=== PATIENT | male | born 1930 | race Caucasian/White ===

== ENCOUNTER → 2016-08-24 | Outpatient (CLI) | payer BC ==
[~2016-08-24] MED LIST: ACET-1138 PO; ASPEC325 PO; ASPI81TA28 PO; ATOR-22 PO; CALC500C70 PO; EZET10TA47 PO; HYDR0.5T PO; LEVO100T PO; MISCTAB88 PO; MULT-506 PO; PANT40TA PO; PRD5 PO; PRED-301 PO; ULT50X PO
--- NOTE | 2016-08-24 11:40 | DIAGNOSTIC IMAGING REPORT ---
CERVICAL SPINE 7 VIEWS HISTORY: M06.9 Rheumatoid arthritis Patient has rheumatoid arthritis he is COMPARISON: None. FINDINGS: The cervical spine is visualized from C1 through the superior endplate of T1. There is no fracture. Moderate levoscoliosis. Moderate calcification of the carotid vasculature. Moderate degenerative changes C1-C2 complex. Mild degenerative intervertebral disc change. Vertebral soft tissues are unremarkable. IMPRESSION: Moderate degenerative change. Moderate levoscoliosis. Calcification of the carotid vasculature. Electronically signed by: Boris Gilmore M.D. 08/24/2016 11:39 AM Dictated Date/Time: 08/24/2016 11:38 AM
== END | disposition home or self-care (01) ==
LOC: C.RAD1850 10:15
PROVIDERS: ATTEND Internal Medicine Rheumatology
DX: M06.9 Rheumatoid arthritis, unspecified (principal); M47.812 Spondylosis without myelopathy or radiculopathy, cervical region; M41.82 Other forms of scoliosis, cervical region; I65.29 Occlusion and stenosis of unspecified carotid artery

== ENCOUNTER → 2016-10-04 | Outpatient (CLI) | payer BC ==
[2016-10-04 12:57] LABS: ALB/GLOB RATIO 0.9 (0.9-2); ALKALINE PHOSPHATASE 79 U/L (45-117); ALT/SGPT 23 U/L (12-78); AST/SGOT 17 U/L (15-37); BLOOD UREA NITROGEN 18 mg/dl (7-18); BUN/CREATININE RATIO 19.6 (10-20); CALCIUM 8.5 mg/dl (8.5-10.1); CARBON DIOXIDE 26 mmol/L (21-32); CHLORIDE 109 mmol/L (98-107); CREATININE 0.94 mg/dl (0.60-1.40); GLUCOSE 83 mg/dl (70-99); POTASSIUM 3.6 mmol/L (3.5-5.1); SODIUM 144 mmol/L (136-145)
[2016-10-04 13:02] LABS: CHOLESTEROL 154 mg/dl (0-200); HDL CHOLESTEROL 78 mg/dl; LDL CHOLESTEROL CALCULATED 55 mg/dl; THYROID STIMULATING HORMONE 0.758 uIu/ml (0.300-4.500); TRIGLYCERIDES 105 mg/dl (0-150); VERY LOW DENSITY LIPOPROT CALC 21 mg/dl
== END | disposition home or self-care (01) ==
LOC: C.LAB 09:46
PROVIDERS: ATTEND Internal Medicine
DX: E03.9 Hypothyroidism, unspecified (principal); E78.5 Hyperlipidemia, unspecified

== ENCOUNTER 2016-11-04 09:47 | Inpatient (IN) | payer BC, OTHER ==
[2016-10-04 10:24] VITALS: BMI 26.0
--- NOTE | 2016-10-04 11:04 | PAT Medication Instructions ---
Service Date Oct 04, 2016. Current Home Medication List Aspirin (Aspirin Ec), 81 MG PO QAM Atorvastatin (Lipitor), 20 MG PO HS Calcium/Vitamin D (Os-Jimmy 500 Plus D), 1 TAB PO BID Hydroxychloroquine Sulfate (Plaquenil), 200 MG PO QAM Levothyroxine Sodium (Synthroid), 100 MCG PO HS Misc Natural Products (Osteo Bi-Flex Triple Stre), 2 TAB PO BID Multivitamin (Multivitamin), 1 TAB PO QAM Pantoprazole (Protonix), 40 MG PO QAM Prednisone (Prednisone), 5 MG PO QAM Medication Instructions For Your Scheduled Surgery Hydroxychloroquine Sulfate (Plaquenil), 200 MG PO QAM (check with forklift truck mechanic for instructions) - Hold the following medications 10 days prior to surgery: Misc Natural Products (Osteo Bi-Flex Triple Stre), 2 TAB PO BID - Hold the following medications the morning of surgery: Multivitamin (Multivitamin), 1 TAB PO QAM Calcium/Vitamin D (Os-Jimmy 500 Plus D), 1 TAB PO BID - Take the following medications the morning of surgery with a sip of water: Pantoprazole (Protonix), 40 MG PO QAM Prednisone (Prednisone), 5 MG PO QAM Aspirin (Aspirin Ec), 81 MG PO QAM - Take the following medications as scheduled the night before surgery: Levothyroxine Sodium (Synthroid), 100 MCG PO HS Calcium/Vitamin D (Os-Jimmy 500 Plus D), 1 TAB PO BID Atorvastatin (Lipitor), 20 MG PO HS If you have any questions please call us at [phone] or [phone] ( [place]) or [phone]
--- NOTE | 2016-10-04 11:46 | DIAGNOSTIC IMAGING REPORT ---
TWO VIEW CHEST CLINICAL HISTORY: Preoperative examination. FINDINGS: PA and lateral chest radiographs are compared to study dated 10/29/2013. The heart is mildly enlarged and there is atherosclerotic calcification of the thoracic aorta. The pulmonary vasculature is noncongested. Chronic interstitial thickening is unchanged. There is left basilar atelectasis. No airspace consolidation, large pleural effusion, or pneumothorax is identified. The skeletal structures are osteopenic. The bony thorax appears intact. IMPRESSION: Mild cardiac enlargement and chronic changes as above. There is no acute cardiopulmonary abnormality. Electronically signed by: Phillip Dobbins M.D. 10/04/2016 11:45 AM Dictated Date/Time: 10/04/2016 11:42 AM
[2016-10-04 12:13] LABS: BASO % 0.6 %; BASO ABS # 0.06 K/uL (0-0.2); COMPLETE YES; EOS % 2.5 %; IG% 0.3 %; LYMPH % 19.4 %; LYMPH ABS # 1.93 K/uL (1.2-3.4); MEAN CELL VOLUME 92.1 fL (80-100); MEAN CORPUSCULAR HEMOGLOBIN 29.9 pg (25-34); MEAN CORPUSCULAR HGB CONC 32.5 g/dl (32-36); MEAN PLATELET VOLUME 10.9 fL (7.4-10.4); MONO % 8.6 %; NEUT % 68.6 %; PLATELET COUNT 243 K/uL (130-400); RED BLOOD COUNT 4.78 M/uL (4.7-6.1); WHITE BLOOD COUNT 9.96 K/uL (4.8-10.8)
--- NOTE | 2016-10-04 12:16 | DIAGNOSTIC IMAGING REPORT ---
CERVICAL SPINE 3 VIEWS CLINICAL HISTORY: Chronic neck pain. Preoperative examination. FINDINGS: Lateral views of the cervical spine in the neutral, flexion, and extension positions are compared to study dated 08/24/2016. The skeletal structures are osteopenic. There is no radiographic evidence of fracture on these lateral views. Vertebral body height is maintained throughout the cervical spine. There is minimal anterolisthesis at C5-C6. This persists on the flexion and extension views. Minimal anterolisthesis is seen at C4-C5 only on the flexion views. The atlantodental articulation appears preserved noting productive degenerative change. The spinolaminar line is intact. Facet arthropathy is noted at several levels. There is only mild degenerative disc space narrowing at C5-C6 and C6-C7. The prevertebral soft tissues are within normal limits. IMPRESSION: 1. No acute bony abnormality is identified. 2. Minimal anterolisthesis at C5-C6 is unchanged on the neutral/flexion/extension views. 3. Minimal anterolisthesis at C4-C5 is only apparent on the flexion views. 4. Osteopenia and additional spondylotic changes as above. Dictated: 10/04/2016 11:45 AM Transcribed: 10/04/2016 12:15 PM [email or web address] Electronically signed by: Phillip Dobbins M.D. 10/04/2016 1:09 PM Dictated Date/Time: 10/04/2016 11:45 AM
[2016-10-04 12:19] LABS: PROTHROMBIN TIME (PATIENT) 10.7 SECONDS (9.0-12.0)
--- NOTE | 2016-10-28 21:49 | HISTORY & PHYSICAL EXAMINATION ---
DATE OF ADMISSION: 11/04/2016 CHIEF COMPLAINT: Right knee pain. HISTORY OF PRESENT ILLNESS: The patient is an 86-year-old fairly active gentleman, who has had a long history of bilateral knee pain and discomfort, right side greater than left. He has been treated conservatively with injections which helped him for about 2 weeks and that is it. Both knees hurt, but the right side is quite a bit worse than the left. It is limiting his activities. The more he walks, the more it hurts. He limps all day long. He has got intermittent swelling as well. He would like to have his right knee fixed while he is still pretty healthy. PAST MEDICAL HISTORY: 1. Elevated cholesterol. 2. Hypothyroidism. 3. Gastroesophageal reflux disease. 4. Rheumatoid arthritis, managed by Dr. Loredo PAST SURGICAL HISTORY: Include appendectomy. ALLERGIES: None. CURRENT MEDICINES: 1. Aspirin 81 mg a day. 2. Atorvastatin 20 mg daily. 3. Calcium with D. 4. Hydroxychloroquine 200 mg daily. 5. Levothyroxine 100 mcg daily. 6. Multivitamin. 7. Osteo Bi-Flex. 8. Pantoprazole 40 mg a day. 9. Prednisone for his RA. SOCIAL HISTORY: This is an 86-year-old male. He is . He is quite active and healthy. He does not smoke. FAMILY HISTORY: Noncontributory. REVIEW OF SYSTEMS: Negative for diabetes, neurologic problems, vascular problems or bleeding disorders. He does have this diagnosis of rheumatoid arthritis; low dose prednisone only. No chest pain or shortness of breath. No DVT or PE. PHYSICAL EXAMINATION: GENERAL: Reveals a healthy, pleasant elderly male. He looks younger than his stated age. HEENT: Benign. NECK: Supple. No lymphadenopathy. LUNGS: Clear to auscultation. HEART: Regular rate and rhythm. ABDOMEN: Soft, nontender and nondistended. EXTREMITIES: Grossly neurovascularly intact except as follows: Examination of the right knee and leg reveals a patient who walks with varus alignment to his knee. He has got a varus thrust. Range of motion is about 5 degrees short of full extension to 120 degrees of flexion. No instability. No pain with hip motion. X-RAYS: X-rays of the right knee were reviewed. It shows advanced bilateral knee DJD, right side is a bit worse than left. He has complete loss of his medial joint space bilaterally. Osteophytes off the medial femoral condyle and medial tibial plateau. ASSESSMENT: An 86-year-old male with advanced bilateral knee degenerative joint disease, right side more symptomatic than the left. It is limiting his activities. He would like to have his right knee replaced. PLAN: We will take him to the operating room and do a right total knee replacement. The risks and benefits of this procedure were explained to the patient including but not limited to DVT, PE, , infection, neurological injury, vascular injury, bleeding problems, pain, limited range of motion, stiffness, failure to relieve symptoms, incomplete relief of symptoms, need for further surgery in the future, fracture, leg length inequality, nerve palsy, etc. The patient understands and desires to proceed. Informed consent was obtained. He is planning to be discharged to home using [facility] home health program. I will likely give him some stress-dose steroids preoperatively due to his chronic steroid use. KINGA
[2016-11-04] VITALS (8 sets, daily range): BP systolic 108–168; BP diastolic 60–88; PULSE 53–65; TEMP 36.3–36.8; O2SAT 94–97; Ht 167.6 cm; Wt 74.7 kg
[~2016-11-04] VITALS: Ht 167.6 cm; Wt 74.7 kg
[~2016-11-04 09:47] MED LIST changes: -ACET-1138 PO; +ACETAMINOPHEN 500 MG TAB PO SCH; -ASPEC325 PO; +BUPIVACAINE 0.25% 30 ML VIAL ONE; +BUPIVACAINE 0.5 % 5 MG/1 ML PF 10ML VIAL ONE; +BUPIVACAINE LIPOSOME 266 MG, BUPIVACAINE/EPINEPHRINE INJ 50 ML, SODIUM CHLORIDE 0.9% PF... INFIL SCH; +CEFAZOLIN 2000 MG/60 ML D5W 60 ML IV SCH; -EZET10TA47 PO; +FAMOTIDINE 20 MG TAB PO SCH; +GABAPENTIN 300 MG CAP PO SCH; +LACTATED RINGER'S 1000ML IV SCH; +LACTATED RINGER'S 500 ML IV SCH; +METOCLOPRAMIDE HCL 10 MG TAB PO SCH; +MIDAZOLAM HCL 1 MG/ML 2ML VIAL ONE; -PRD5 PO; +SCOPOLAMINE 1.5 MG TDSY TD SCH; +TRANEXAMIC ACID INJ 1,000 MG in SODIUM CHLORIDE 0.9% 100ML 100 ML IV SCH; -ULT50X PO
--- NOTE | 2016-11-04 10:18 | History & Physical Bridge Note ---
H&P Re-Evaluation Bridge Note: I have examined the patient, reviewed the History & Physical and in the interval since the performance of the History & Physical I have noted the following changes of clinical significance: No changes noted
[2016-11-04] MEDS ORDERED: SODIUM CHLORIDE 0.9% PF 50 ML VIAL ONE (10:47)
[2016-11-04] MEDS ORDERED: BACITRACIN 50000 UNIT VIAL ONE (10:47)
[2016-11-04] MEDS ORDERED: BUPIVACAINE LIPOSOME 1/3% 266 MG/20 ML VIAL INFIL ONE (10:47)
[2016-11-04] MEDS ORDERED: BUPIVACAINE/EPINEPHRINE 0.25% 1:200,000 30 ML VIAL ONE (10:47)
[2016-11-04] MEDS ORDERED: MIDAZOLAM HCL 1 MG/ML 2ML VIAL ONE (11:05)
[2016-11-04] MEDS ORDERED: EpHEDrine SULFATE INJ 50 MG/ML AMP IV PRN (12:00)
[2016-11-04] MEDS ORDERED: ONDANSETRON INJ 2 MG/ML 2 ML VIAL IV PRN ×2 (12:00→14:00)
[2016-11-04] MEDS ORDERED: HYDROmorphone INJ 2 MG/ML SYR/VIAL IV PRN (12:00)
[2016-11-04] MEDS ORDERED: KETOROLAC TROMETHAMINE 30 MG/ML VIAL IV. PRN (12:00)
[2016-11-04] MEDS ORDERED: PHENYLEPHRINE 100MCG/ML 5ML SYR IV PRN (12:00)
[2016-11-04] MEDS ORDERED: ATROPINE SULFATE 0.1 MG/ML 5ML SYR IV PRN (12:00)
[2016-11-04] MEDS ORDERED: PROPOFOL IV EMULSION 10 MG/ML 20 ML VIAL IV ONE (12:23)
--- NOTE | 2016-11-04 13:46 | [facility] Post Operative Brief Note ---
Immediate Operative Summary Operative Date Nov 04, 2016. Pre-Operative Diagnosis Advanced Right Knee Degenerative Joint Disease Post-Operative Diagnosis Advanced Right Knee Degenerative Joint Disease Procedure(s) Performed Total Right Knee Arthroplasty Surgeon Dr.James West Stand Up Forklift Operator Surgeon(s) Javier Pratt Estimated Blood Loss 50 ml Findings Right Knee DJD Fluids (cc crystalloids) 1300 cc Specimens A:Right Knee Bone and Tissue Drains None Anesthesia SPinal Complication(s) None Disposition Recovery Room / PACU
[2016-11-04] MEDS ORDERED: SILVER SULFADIAZINE 1% CR 50 GM JAR EXT PRN (14:00)
[2016-11-04] MEDS ORDERED: MAGNESIUM HYDROXIDE SUSP 30 ML UDC PO PRN (14:00)
[2016-11-04] MEDS ORDERED: TAMSULOSIN HCL 0.4 MG CAP PO PRN (14:00)
[2016-11-04] MEDS ORDERED: BISACODYL 10 MG SUPP PR PRN (14:00)
[2016-11-04] MEDS ORDERED: ZOLPIDEM TARTRATE 5 MG TAB PO PRN (14:00)
[2016-11-04] MEDS ORDERED: METOCLOPRAMIDE HCL INJ 5 MG/ML 2 ML VIAL IV PRN (14:00)
[2016-11-04] MEDS ORDERED: HYDROmorphone INJ 0.5 MG/0.5 ML SYR IV PRN (14:00)
[2016-11-04] MEDS ORDERED: ALUMINUM/MAGNESIUM/SIMETH (MAALOX MAX) 30 ML UDC PO PRN (14:00)
--- NOTE | 2016-11-04 14:17 | DIAGNOSTIC IMAGING REPORT ---
RIGHT KNEE 1 OR 2 VIEWS ROUTINE CLINICAL HISTORY: Postop examination COMPARISON: Outside study dated 08/15/2016 DISCUSSION: There are postsurgical changes of a total right knee arthroplasty and patellar resurfacing. The femoral and tibial components appear well seated. Overlying skin gabriel are visualized. There is air within the soft tissues consistent with recent surgery. IMPRESSION: Postsurgical changes of a total right knee arthroplasty Electronically signed by: Aamir Haque M.D. 11/04/2016 2:15 PM Dictated Date/Time: 11/04/2016 2:14 PM
--- NOTE | 2016-11-04 14:26 | OPERATIVE REPORT ---
DATE OF OPERATION: 11/04/2016 SURGEON: Santy West MD GROUND PRODUCTS DIRECTOR: BLAYNE Shelton PREOPERATIVE DIAGNOSIS: Right knee degenerative joint disease. POSTOPERATIVE DIAGNOSIS: Same. PROCEDURE PERFORMED: Right cemented posterior stabilized total knee arthroplasty. COMPLICATIONS: None. ESTIMATED BLOOD LOSS: 50 mL. FLUID REPLACEMENT: 1300 mL crystalloid fluid replacement. TOURNIQUET TIME: 54 minutes at 300 mmHg. ANESTHESIA: Spinal with adductor canal block. DRAINS: None. SPECIMENS: Right knee sent for pathology. OPERATIVE INDICATIONS: The patient is an 86-year-old fairly active gentleman who has had a long history of bilateral knee discomfort and pain, right side greater than left. He has been treated conservatively, which did provide some relief, but only temporary for about 2 weeks. Pain has become more debilitating. The more he walks, it more hurts. He elected to proceed with total knee arthroplasty on the right. The patient does have a history of rheumatoid disease managed by Dr. Loredo in the past. OPERATIVE FINDINGS: Operative findings revealed advanced right knee DJD. He had extensive grade 4 changes of the medial femoral condyle, medial tibial plateau, and patellofemoral joint. He had a varus deformity to his knee. Moderate size joint effusion. OPERATIVE IMPLANTS: Operative implants consisted of: 1. Biomet Vanguard size 65 right posterior stabilized femoral component. 2. Biomet size 71 tibial tray. 3. A 14-mm posterior stabilized polyethylene insert. 4. A 31 x 8 all poly patella. OPERATIVE PROCEDURE: The patient was taken to the operating room, identified and placed on operative table in the supine position. All contact areas were appropriately padded. IV antibiotics were provided by the anesthesia team. A spinal anesthetic had been implemented in the holding area. An adductor canal block had also been provided in the holding area. A Marshall catheter was placed in sterile fashion. A right thigh tourniquet was then placed and the right lower extremity was then prepped and draped in the usual sterile fashion. The right leg was elevated and exsanguinated with Esmarch and tourniquet was placed at 300 mmHg. An anterior approach to the right knee was then performed through a longitudinal incision centered over the patella. Sharp dissection was carried out through the subcutaneous tissues down to the level of the extensor mechanism. A medial parapatellar arthrotomy incision was made. Some subperiosteal dissection was carried out medially. The fat pad was resected from beneath the patellar tendon. The lateral patellofemoral ligament was released. The patella was everted and knee was flexed. The osteophytes were taken off the distal femur. The ACL and PCL were then released from the distal femur and the tibia subluxated anteriorly. The external tibial alignment jig was then placed in the anterior face of the tibia and adjusted 16 mm medially. Proximal tibial cut was made to remove about a millimeter or 2 of bone from the most deficient aspect of the medial tibial plateau. Tibia was sized to a size 71. Attention was then drawn to the femur. The distal femur was entered with a sharp drill bit. Intramedullary canal was suctioned. A right 6-degree valgus cutting guide was placed. Distal femoral cutting block was pinned in place. Distal femoral cut was made to take an additional 3 mm of bone off the distal femur. The femur was then sized to a size 65. We did downsize this slightly. The AP cutting block was pinned parallel to the epicondylar axis, which was 3 degrees of external rotation. The anterior cut, anterior chamfer, posterior cut, and posterior chamfer cuts were made. Box cutting guide was placed and adjusted slightly lateral and the box cut was made. The knee was flexed. The remnants of the medial and lateral meniscus were excised. The osteophytes were taken off the posterior aspect of the femur. Trial femoral component was placed. The tibial tray was pinned in maximum external rotation and drill and stem punch were used to create defect in proximal tibia for the tibial tray. The knee was then trialed and a 14-mm insert fit most appropriately. Attention was then drawn to the patella. The patella was cleaned of all soft tissues. Patellar thickness measured 21 mm and was cut down to 13. It was sized to a size 31 patella. Lug holes were drilled for the 31 patella. The lateral osteophyte was removed. Patella button was placed. Knee was taken through range of motion and then, the patella tracked nicely with no thumbs test. Attention was then drawn toward placement of the permanent components. All trial components were removed. A bone plug was placed in the distal femur to limit blood loss. A double batch of Palacos G cement was mixed. A right size 65 posterior stabilized femoral component, size 71 tibial tray, 14 mm posterior stabilized polyethylene insert, and a 31 x 8 all poly patella then cemented in place. Knee was brought out into full extension until cement hardened. A final cement check was then performed. Pericapsular tissues were injected with a total of 100 mL of a combination of 20 mL of Exparel, 30 mL of normal saline, and 50 mL of 0.25% Marcaine with epinephrine. The patient did receive 1 gram of tranexamic acid, but the tourniquet was then let down for final tourniquet time of 54 minutes. Hemostasis was assured with the use of electrocautery. The extensor mechanism was then closed with a combination of #1 PDS suture and #1 Vicryl suture in a [id number] fashion. Extensor mechanism was checked and found to be intact. The subcutaneous tissues were then closed with 2-0 Dexon suture in a buried interrupted fashion. Skin was closed skin gabriel. Leg was then cleaned and dried and a sterile dressing of Xeroform, 4 x 4, sterile cast padding and Miguel bandage were applied. The patient then transferred to the recovery room in stable condition. The patient tolerated the procedure well with no complications. All needle and sponge counts were correct at the end of the operation. I attest to the content of the Intraoperative Record and any orders documented therein. Any exceptions are noted below. [place]
--- NOTE | 2016-11-04 14:46 | Anesthesiology Progress Note ---
Anesthesia Post Op Note Date & Time Nov 04, 2016 at 14:43 Vital Signs Pain Intensity: 0 Vital Signs Past 12 Hours Date Time Temp Pulse Resp B/P Pulse Ox O2 Delivery O2 Flow Rate FiO2 11/04/16 14:20 130/65 11/04/16 14:17 49 17 99 11/04/16 14:17 50 17 11/04/16 14:15 121/73 11/04/16 14:12 53 18 97 11/04/16 14:12 54 18 11/04/16 14:11 127/65 11/04/16 14:07 50 17 98 11/04/16 14:07 50 17 11/04/16 14:06 51 15 99 11/04/16 14:06 50 15 11/04/16 14:05 36.1 11/04/16 14:05 129/64 11/04/16 14:01 51 17 11/04/16 14:01 50 17 98 11/04/16 14:00 132/70 11/04/16 13:56 51 18 98 11/04/16 13:56 50 18 11/04/16 13:55 107/59 11/04/16 13:51 56 16 98 11/04/16 13:51 55 16 11/04/16 13:50 118/61 11/04/16 13:46 54 13 108/67 95 11/04/16 13:46 35.4 55 19 108/67 96 Nasal Cannula 2 11/04/16 13:46 54 13 11/04/16 10:05 65 18 168/65 97 Room Air Notes Mental Status: alert / awake / arousable, participated in evaluation Pt Amnestic to Procedure: Yes Nausea / Vomiting: adequately controlled Pain: adequately controlled Airway Patency, RR, SpO2: stable & adequate BP & HR: stable & adequate Hydration State: stable & adequate Anesthetic Complications: no major complications apparent Patient skin temp 36.4 but trying to take an oral temperature showed temp of 35.4. I felt patient and he is warm to the touch, denied shivering and said he doesn't feel cold. Diane hugger in place with warm blankets. Plan will be to transfer patient and have diane hugger available on floor until spinal wears completely off and he should have no problems being normothermic. Patient has no questions about his anesthetic care and he is appropriate for transfer.
[2016-11-04] MEDS: CHECK SCOPOLAMINE PATCH PLACEMENT SCH ×2 (16:00→23:42)
[2016-11-04] MEDS: HYDROCORTISONE IV 100 MG in SYRINGE 0 ML IV SCH ×2 (17:11→23:34)
[2016-11-04] MEDS: D5W AND 1/2NSS + 20MEQ KCL 1,000 ML IV SCH (17:11)
[2016-11-04] MEDS: ACETAMINOPHEN 500 MG TAB PO SCH ×2 (17:11→23:34)
[2016-11-04] MEDS: FERROUS GLUCONATE 324 MG TAB PO SCH (17:19)
[2016-11-04] MEDS: KETOROLAC TROMETHAMINE 15 MG/ML VIAL IV. SCH ×2 (17:24→23:34)
[2016-11-04] MEDS ORDERED: TRANEXAMIC ACID INJ 1,000 MG in SODIUM CHLORIDE 0.9% 100ML 100 ML IV SCH (18:00)
--- NOTE | 2016-11-04 18:07 | Medical Consult ---
Consultation Date of Consultation: Nov 04, 2016. Attending Physician: Santy West M.D. Reason for Consultation: Medical management History of Present Illness 86 yo male with history of RA, osteoarthritis, and GERD, presented today for elective right TKA after failing injections and other conservative therapy. No complications, he was transferred to the floor in stable condition. Currently his knee pain is well controlled, he already completed some therapy and he is eating dinner. Had a little nausea and vomiting but that seems to have improved. No chest pain or shortness of breath after surgery. Past Medical/Surgical History PAST MEDICAL HISTORY: 1. Elevated cholesterol. 2. Hypothyroidism. 3. Gastroesophageal reflux disease. 4. Rheumatoid arthritis, managed by Dr. Loredo PAST SURGICAL HISTORY: Include appendectomy. 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 Aspirin 81 mg a day. 2. Atorvastatin 20 mg daily. 3. Calcium with D. 4. Hydroxychloroquine 200 mg daily. 5. Levothyroxine 100 mcg daily. 6. Multivitamin. 7. Osteo Bi-Flex. 8. Pantoprazole 40 mg a day. 9. Prednisone for his RA. Current Inpatient Medications Current Inpatient Medications Medications (Trade) Dose Ordered Sig/Migel Route Start Time Stop Time Status Last Admin Dose Admin Lactated Ringer's 1,000 ml @ 60 mls/hr [id number] IV 11/04/16 06:00 11/04/16 22:39 Cefazolin Sodium (Ancef 2000mg/60 ml D5W) 60 ml @ 100 mls/hr PREOP IV 11/04/16 06:00 11/04/16 18:00 11/04/16 11:59 100 MLS/HR Acetaminophen 1000 mg 1,000 mg PREOP PO 11/04/16 06:00 11/04/16 18:00 11/04/16 10:53 1,000 MG Bupivacaine Liposome/ Bupivacaine HCl/ Epinephrine Bitart/Sodium Chloride/Syringe (Exparel/ BUPIVACAINE/ EPINEPHRINE 0.25% Inj/Sodium Chloride 0.9% Pf Inj/Syringe) 100 ml @ 0 mls/hr 06 INFIL 11/04/16 06:00 11/04/16 18:00 Famotidine (Pepcid Tab) 20 mg PREOP PO 11/04/16 06:00 11/04/16 18:00 11/04/16 10:51 20 MG Gabapentin (Neurontin Cap) 300 mg PREOP PO 11/04/16 06:00 11/04/16 18:00 11/04/16 10:51 300 MG Metoclopramide HCl (Reglan Tab) 10 mg PREOP PO 11/04/16 06:00 11/04/16 18:00 11/04/16 10:52 10 MG Miscellaneous (Remove Transderm-Scop Patch) 1 ea Q72H N/A 11/07/16 06:00 11/07/16 06:01 Miscellaneous Information 1 ea 1 ea QS N/A 11/04/16 16:00 11/06/16 05:59 11/04/16 16:00 1 EA Lactated Ringer's 1,000 ml @ 15 mls/hr Q24H IV 11/04/16 06:00 11/05/16 05:59 Potassium Chloride/Dextrose/ Sod Cl 1,000 ml @ 100 mls/hr Q10H IV 11/04/16 16:00 11/05/16 13:45 11/04/16 17:11 100 MLS/HR Cefazolin Sodium/ Dextrose (Ancef Iv/D5 50ml) 55 ml @ 100 mls/hr Q8H IV 11/04/16 20:00 11/05/16 04:32 Acetaminophen (Tylenol Tab) 1,000 mg Q8H PO 11/04/16 16:00 12/04/16 13:59 11/04/16 17:11 1,000 MG Magnesium Hydroxide (Milk Of Magnesia Susp) 30 ml Q6H PRN PO 11/04/16 14:00 12/04/16 13:59 Bisacodyl (Dulcolax Supp) 10 mg DAILY PRN NH 11/04/16 14:00 12/04/16 13:59 Docusate Sodium (coLACE CAP) 100 mg BID PO 11/04/16 21:00 12/04/16 20:59 Al Hydrox/Mg Hydrox/Simethicone (Maalox Max Susp) 15 ml Q4H PRN PO 11/04/16 14:00 12/04/16 13:59 Zolpidem Tartrate (Ambien Tab) 5 mg HSZ PRN PO 11/04/16 14:00 12/04/16 13:59 Multivitamins (Multivitamin Tab) 1 tab QAM PO 11/05/16 09:00 12/05/16 08:59 Ondansetron HCl (Zofran Inj) 4 mg Q6H PRN IV 11/04/16 14:00 12/04/16 13:59 Metoclopramide HCl (Reglan Inj) 10 mg Q6H PRN IV 11/04/16 14:00 12/04/16 13:59 Ferrous Gluconate (Ferrous Gluconate Tab) 324 mg TIDM PO 11/04/16 17:45 12/04/16 17:59 11/04/16 17:19 324 MG Pantoprazole Sodium (Protonix Tab) 40 mg QAM PO 11/05/16 09:00 12/05/16 08:59 Silver Sulfadiazine (Silvadene 1% Crm 50GM Jar) 1 appln BID PRN EXT 11/04/16 14:00 12/04/16 13:59 Aspirin (Ecotrin Tab) 325 mg BID PO 11/04/16 21:00 12/04/16 20:59 Tamsulosin HCl (Flomax Cap) 0.4 mg QAM PRN PO 11/04/16 14:00 12/04/16 13:59 Tramadol HCl 1 tablet for pain rating... Q4H PRN PO 11/04/16 14:00 12/04/16 13:59 Tranexamic Acid/ Sodium Chloride (Cyklokapron Inj/ Nss 100ml) 110 ml @ 660 mls/hr Q6H IV 11/04/16 18:00 11/04/16 18:09 11/04/16 17:24 660 MLS/HR Ketorolac Tromethamine (Toradol Inj) 15 mg Q6H IV. 11/04/16 18:00 11/06/16 12:01 11/04/16 17:24 15 MG Atorvastatin Calcium (Lipitor Tab) 20 mg HS PO 11/04/16 21:00 12/04/16 20:59 Calcium/Vitamin D (Caltrate Plus Tab) 1 tab BID PO 11/04/16 21:00 12/04/16 20:59 Levothyroxine Sodium (Synthroid Tab) 100 mcg HS PO 11/04/16 21:00 12/04/16 20:59 Prednisone (PredniSONE TAB) 5 mg QAM PO 11/05/16 09:00 12/05/16 08:59 Hydromorphone HCl 0.5 mg 0.5 mg Q1H PRN IV 11/04/16 14:00 11/18/16 13:59 Hydrocortisone Sodium Succinate/ Syringe (Solu-Cortef IV/ Syringe) 2 ml @ 4 mls/min Q8H IV 11/04/16 16:30 11/05/16 08:31 11/04/16 17:11 4 MLS/MIN Review of Systems Constitutional: No chills, No fatigue, No fever, No problem reported, No sweats , No weakness, No weight loss Eyes: No diplopia, No discharge, No eye pain, No problem reported, No redness, No worsening of vision ENT: No dental problems, No hearing loss, No nasal symptoms, No problem reported, No sore throat, No tinnitus, No trouble swallowing, No unusual epistaxis Respiratory: No cough, No dyspnea at rest, No dyspnea on exertion, No hemoptysis, No problem reported, No shortness of breath, No sputum, No wheezing Cardiovascular: No PND, No chest pain, No claudication, No edema, No orthopnea , No palpitations, No problem reported Abdomen: + nausea, + vomiting, No GI bleeding, No constipation, No diarrhea, No pain Musculoskeletal: + joint pain (mild in right knee), No calf pain, No muscle pain, No problem reported, No swelling Genitourinary - Male: No dysuria, No hematuria, No urinary frequency, No urinary urgency Neurologic: No balance problems, No memory loss, No numbness/tingling, No paralysis, No problem reported, No vertigo, No weakness Psychiatric: No anhedonism, No anxiety, No depression symptoms, No insomnia, No problem reported, No substance abuse Endocrine: No excessive thirst, No excessive urination, No fatigue, No problem reported Hematologic / Lymphatic: No abnormal bleeding/bruising, No clotting problems, No night sweats, No problem reported, No swollen lymph nodes Integumentary: No bleeding, No color change, No itch, No new/changing skin lesions, No problem reported, No rash Allergic / Immunologic: No environmental allergies, No food allergies, No frequent infections, No hives, No pet sensitivities, No poor healing, No problem reported, No prolonged convalescence, No seasonal allergies Physical Exam Date Time Temp Pulse Resp B/P Pulse Ox O2 Delivery O2 Flow Rate FiO2 11/04/16 17:30 36.4 63 17 155/79 97 Nasal Cannula 2.0 11/04/16 16:29 36.4 60 17 115/74 97 Nasal Cannula 2.0 11/04/16 16:03 36.3 62 18 128/80 97 Nasal Cannula 2.0 11/04/16 15:41 Nasal Cannula 2.0 98 11/04/16 15:38 96 Nasal Cannula 2.0 11/04/16 15:30 36.4 59 15 131/80 96 Nasal Cannula 2.0 11/04/16 15:08 60 17 98 11/04/16 15:08 61 17 11/04/16 15:05 130/84 11/04/16 15:04 36.4 11/04/16 15:03 60 19 98 11/04/16 15:03 59 19 11/04/16 15:00 146/67 11/04/16 14:59 36.4 11/04/16 14:58 52 19 97 11/04/16 14:58 52 19 11/04/16 14:57 52 19 97 11/04/16 14:57 52 19 11/04/16 14:55 137/69 11/04/16 14:52 55 18 11/04/16 14:52 55 18 97 11/04/16 14:50 141/70 11/04/16 14:47 55 16 99 11/04/16 14:47 55 16 11/04/16 14:45 141/69 11/04/16 14:42 51 17 11/04/16 14:42 51 17 99 11/04/16 14:41 53 19 141/68 99 11/04/16 14:41 53 19 11/04/16 14:36 54 17 99 11/04/16 14:36 53 17 11/04/16 14:35 142/67 11/04/16 14:31 52 18 11/04/16 14:31 52 18 99 11/04/16 14:30 142/67 11/04/16 14:26 52 17 99 11/04/16 14:26 51 17 11/04/16 14:25 147/70 11/04/16 14:21 49 14 99 11/04/16 14:21 49 14 11/04/16 14:20 130/65 11/04/16 14:17 49 17 99 11/04/16 14:17 50 17 11/04/16 14:15 121/73 11/04/16 14:12 53 18 97 11/04/16 14:12 54 18 11/04/16 14:11 127/65 11/04/16 14:07 50 17 98 11/04/16 14:07 50 17 11/04/16 14:06 51 15 99 11/04/16 14:06 50 15 11/04/16 14:05 36.1 11/04/16 14:05 129/64 11/04/16 14:01 51 17 11/04/16 14:01 50 17 98 11/04/16 14:00 132/70 11/04/16 13:56 51 18 98 11/04/16 13:56 50 18 11/04/16 13:55 107/59 11/04/16 13:51 56 16 98 11/04/16 13:51 55 16 11/04/16 13:50 118/61 11/04/16 13:46 54 13 108/67 95 11/04/16 13:46 35.4 55 19 108/67 96 Nasal Cannula 2 11/04/16 13:46 54 13 11/04/16 10:05 65 18 168/65 97 Room Air General Appearance: WD/WN, no apparent distress Head: normocephalic, atraumatic Eyes: normal inspection, EOMI, sclerae normal ENT: normal ENT inspection, hearing grossly normal, pharynx normal Neck: supple, no adenopathy, no JVD, trachea midline Respiratory/Chest: chest non-tender, lungs clear, normal breath sounds, no respiratory distress, no accessory muscle use Cardiovascular: regular rate, rhythm, no edema, no gallop, no JVD, no murmur, normal peripheral pulses Abdomen/GI: normal bowel sounds, non tender, soft, no organomegaly Back: normal inspection, no CVA tenderness, no muscle spasm, normal range of motion Extremities/Musculoskelatal: no calf tenderness, normal capillary refill, no pedal edema, pelvis stable, + pertinent finding (right knee tender, decreased ROM) Neurologic/Psych: senior paralegal II-XII nml as tested, no motor/sensory deficits, alert, normal mood/affect, normal reflexes, oriented x 3 Skin: normal color, warm/dry, no rash Lymphatic: no adenopathy Assessment & Plan 86 yo male with history of GERD and RA, stable after an elective R TKA today - s/p R TKA, POD #0: doing well, management per Dr. West - RA: continue Prednisone 5mg daily, his symptoms have been well controlled for years - GERD: PPI, no symptoms - Hypothyroidism: Synthroid - DVT prophylaxis: per ortho check labs in the AM, can likely sign off tomorrow if vitals and labs normal
[2016-11-04] MEDS: ATORVASTATIN 20 MG TAB PO SCH (20:43)
[2016-11-04] MEDS: CEFAZOLIN IV 1,000 MG in DEXTROSE 5% 50ML 50 ML IV SCH (20:43)
[2016-11-04] MEDS: CALCIUM 600MG + VIT D 400 IU TAB PO SCH (20:43)
[2016-11-04] MEDS: ASPIRIN 325 MG ECTAB PO SCH (20:43)
[2016-11-04] MEDS: DOCUSATE SODIUM 100 MG CAP PO SCH (20:43)
[2016-11-04] MEDS: LEVOTHYROXINE 100 MCG TAB PO SCH (20:44)
[2016-11-04] MEDS ORDERED: NATURAL PRODUCTS PO SCH (21:00)
--- NOTE | 2016-11-04 21:26 | PROGRESS NOTE ---
DATE: 11/04/2016 SUBJECTIVE: An 86-year-old gentleman postop from a right knee replacement. He was pretty groggy when I visited with him this afternoon. Awake, alert and oriented but just groggy. Not having much pain. No chest pain or shortness of breath. OBJECTIVE: VITAL SIGNS: Temperature 36.4. Vital signs stable. GENERAL: Reveals a healthy pleasant, elderly male. He is sitting up in bed and talking to his family. He seems a little bit groggy. LUNGS: Clear to auscultation. HEART: Regular rate and rhythm. ABDOMEN: Soft, nontender, nondistended. EXTREMITIES: Grossly neurovascularly intact except as follows. Examination of the right lower extremity reveals the dressing to be clean, dry and intact. Leg is well aligned. He can dorsiflex and plantarflex his foot appropriately. He is neurologically intact. X-RAYS: X-rays of the right knee from today are reviewed in the recovery room. It shows a well-positioned total knee replacement. No signs of problems. ASSESSMENT: An 86-year-old gentleman postop from a right knee replacement, doing well. Pain is controlled. Still a bit groggy from the anesthesia. PLAN: 1. DVT prophylaxis including thigh-high TEDs, SCDs, and aspirin twice a day. 2. PT/OT. Weightbearing as tolerated. Right total knee protocol. 3. Pain control, doing pretty well with current pain regimen. 4. IV antibiotics x 24 hours. 5. Medical management as per the medicine service. 6. Disposition: He is planning to be discharged home using [facility] home health program once adequately recovered.
[2016-11-05] VITALS (8 sets, daily range): BP systolic 118–152; BP diastolic 68–100; PULSE 49–105; TEMP 36.4–36.9; O2SAT 94–97
[2016-11-05] MEDS: D5W AND 1/2NSS + 20MEQ KCL 1,000 ML IV SCH ×2 (01:50→11:29)
[2016-11-05] MEDS: CEFAZOLIN IV 1,000 MG in DEXTROSE 5% 50ML 50 ML IV SCH (03:51)
[2016-11-05 05:44] LABS: HEMATOCRIT 38.3 % (42-52); MEAN CELL VOLUME 92.1 fL (80-100); MEAN CORPUSCULAR HEMOGLOBIN 29.6 pg (25-34); MEAN CORPUSCULAR HGB CONC 32.1 g/dl (32-36); MEAN PLATELET VOLUME 10.5 fL (7.4-10.4); PLATELET COUNT 207 K/uL (130-400); RED BLOOD COUNT 4.16 M/uL (4.7-6.1); WHITE BLOOD COUNT 14.04 K/uL (4.8-10.8)
[2016-11-05] MEDS: KETOROLAC TROMETHAMINE 15 MG/ML VIAL IV. SCH ×5 (05:44→23:45)
[2016-11-05 06:09] LABS: POTASSIUM 4.1 mmol/L (3.5-5.1)
[2016-11-05] MEDS: CHECK SCOPOLAMINE PATCH PLACEMENT SCH ×3 (08:26→22:43)
[2016-11-05] MEDS: FERROUS GLUCONATE 324 MG TAB PO SCH ×3 (08:31→17:45)
[2016-11-05] MEDS: ASPIRIN 325 MG ECTAB PO SCH ×2 (08:32→20:00)
[2016-11-05] MEDS: MULTIVITAMIN TAB PO SCH (08:32)
[2016-11-05] MEDS: PANTOprazole SOD 40 MG TAB PO SCH (08:32)
[2016-11-05] MEDS: DOCUSATE SODIUM 100 MG CAP PO SCH ×2 (08:32→20:00)
[2016-11-05] MEDS: CALCIUM 600MG + VIT D 400 IU TAB PO SCH ×2 (08:32→20:00)
[2016-11-05] MEDS: HYDROCORTISONE IV 100 MG in SYRINGE 0 ML IV SCH (08:33)
[2016-11-05] MEDS: ACETAMINOPHEN 500 MG TAB PO SCH ×3 (08:33→23:40)
[2016-11-05] MEDS ORDERED: ULT50X PO (08:39)
[2016-11-05] MEDS ORDERED: ASPEC325 PO (08:39)
[2016-11-05] MEDS ORDERED: ACET-1138 PO (08:39)
--- NOTE | 2016-11-05 08:41 | Discharge Instructions ---
Discharge Instructions Date of Service Nov 05, 2016. Admission Reason for Admission: Right Knee Osteoarthritis Discharge Discharge Diagnosis / Problem: Right Knee Replacement Discharge Goals Goal(s): Decrease discomfort, Improve function, Increase independence, Improve disease control, Therapeutic intervention Activity Recommendations Activity Limitations: per Instructions/Follow-up section Weightbearing Status: Right weightbearing . Instructions / Follow-Up Instructions / Follow-Up ACTIVITY RECOMMENDATIONS: Physical Therapy: * You will go to physical therapy three times each week for four to six weeks after your surgery in order to regain your knee range of motion and to retrain your knee to work properly. * It is just as important to make sure you are getting your knee perfectly straight as it is to regain your knee bend. * Taking a pain pill an hour before therapy can help you have a more productive and comfortable therapy session. Home Exercise: * You were shown a series of exercises (heel props, heel slides, etc.) in the hospital. Do these exercises three to four times each day including the exercises you were shown in physical therapy. Walking: * Get up and walk several times each day. For the first four weeks, try not to stand or walk for more than one hour at a time. If you do stand or walk for more than one hour, you will not hurt anything, but your knee and leg will likely swell. * As you feel comfortable, you may change from the walker or crutches to a cane and then to independent walking. MEDICATIONS: New Medicine: * You will likely be taking one or more of these medications: 1. Tramadol - A quick and shorter-acting pain medication. Take one to two tablets every four to six hours to lessen your pain. 2. Aspirin - Thins your blood to lessen the chance of forming a blood clot. * The most common side effects of pain medicine and iron are nausea and constipation. If nausea or constipation is too much of a problem or if you have any questions about your new medicines or doses, call [facility] at [phone]. We will try to help you manage these issues. VERY IMPORTANT TO READ AND REVIEW" Pain: * The immediate post-operative period after knee replacement surgery is often quite painful. * You are given a prescription for pain medicine. You should take it, as directed, when you need it, especially before physical therapy and before going to bed. Pain that interferes with sleep is very common and can last several months. * You will likely need pain medicine for the first four to six weeks. It will not stop all of the pain. The pain will lessen and as you feel better, you may change to milder pain medicine such as Tylenol. * The most common side effects of pain medicine are nausea and constipation, so don't take more than you need. SPECIAL CARE INSTRUCTIONS: TEDs/Elastic Stockings: * The white elastic stockings help limit swelling and prevent blood clots from forming in your legs. The more you wear them, the more they work. * Wear them for six weeks after knee replacement surgery and four weeks after partial knee replacement. Prevention of Infection: * Take antibiotics one hour before any dental cleaning, dental work, urological procedure, gastrointestinal procedure or any invasive surgery in order to prevent your new joint from getting infected. * You may get the antibiotics from the doctor performing the procedure or you may call our office at before and we will call in a prescription to the pharmacy of your choice. Things to Watch For: * Drainage from the incision site that occurs more than one week after your surgery. * Severely increased knee/leg pain or swelling. * Increased redness at the incision site. * Fever above 102 degrees Fahrenheit. * Unusual chest pain or shortness of breath. * Unusual pain or burning with urination. Call [facility] at with any of the above problems or if you have any questions about your medicines or recovery. FOLLOW UP VISIT: Make an appointment to see your doctor for approximately two weeks after surgery for a progress check and staple removal by calling the office at . Current Hospital Diet Patient's current hospital diet: Regular Diet Discharge Diet Recommended Diet: Regular Diet Procedures Procedures Performed: Total Right Knee Arthroplasty Pending Studies Studies pending at discharge: no Laboratory Results Lipid Panel Test 10/04/16 11:11 Range/Units Triglycerides Level 105 0-150 mg/dl Cholesterol Level 154 0-200 mg/dl HDL Cholesterol 78 mg/dl Cholesterol/HDL Ratio 2.0 LDL Cholesterol, Calculated 55 mg/dl Medical Emergencies . Who to Call and When: Medical Emergencies: If at any time you feel your situation is an emergency, please call 911 immediately. . Non-Emergent Contact Non-Emergency issues call your: Surgeon . "Provider Documentation" section prepared by Santy West. . VTE Core Measure Inpt VTE Proph given/why not?: Other Anticoagulation, TTerrance Luke, SCD's
--- NOTE | 2016-11-05 08:56 | PROGRESS NOTE ---
DATE: 11/05/2016 SUBJECTIVE: An 86-year-old gentleman, postop day #1 from a right knee replacement. He is doing pretty well. He is not having much pain at all. He seems to have just a slight bit of confusion, which is ____ his baseline. No chest pain or shortness of breath. Not feeling dizzy or lightheaded. OBJECTIVE: VITAL SIGNS: Temperature 36.4. Vital signs stable. GENERAL: Reveals a healthy, pleasant elderly male. He is sitting up in the bedside chair and looks pretty comfortable. EXTREMITIES: Examination of the right leg reveals the dressing to be clean, dry and intact. He can do a straight leg raise. He can dorsiflex and plantarflex his foot appropriately. He is neurologically intact. LABORATORY DATA: Hemoglobin 12.3, hematocrit 38.3. Electrolytes are stable. ASSESSMENT: This is an 86-year-old gentleman, postop day #1 from right knee replacement, doing well. His knee looks good. Not much swelling. He is functioning well. Pain is controlled. PLAN: 1. DVT prophylaxis including thigh-high TEDs, SCDs and aspirin twice a day. 2. PT/OT. Weightbearing as tolerated. Right total knee protocol. 3. Pain control, doing pretty well with current pain regimen. We are going to really try to avoid narcotics to avoid confusion as I think he is high risk for confusion and sundowning. 4. Disposition: Plan to discharge to home with some home health once adequately recoverd.
[2016-11-05] MEDS ORDERED: MULTIVITAMIN TAB PO SCH (09:00)
[2016-11-05] MEDS ORDERED: PANTOprazole SOD 40 MG TAB PO SCH (09:00)
--- NOTE | 2016-11-05 09:06 | Hospitalist Progress Note ---
Hospitalist Progress Note Date of Service Nov 05, 2016. Subjective Pt evaluation today including: conversation w/ patient Pain: well controlled patient with no complaints no chest pain no shortness of breath Medications Last Resulted CBC 11/05/16 05:25 Last Resulted BMP 11/05/16 05:25 Medications (Trade) Dose Ordered Sig/Migel Route Start Time Stop Time Status Last Admin Dose Admin Miscellaneous Information (Check Scopolamine Patch Placement) 1 ea QS N/A 11/04/16 16:00 11/06/16 05:59 11/05/16 08:26 1 EA Bupivacaine HCl/ Epinephrine Bitart (BUPIVACAINE/ EPINEPHRINE 0.25% Inj) 60 ml STK-MED ONCE .ROUTE 11/04/16 10:47 11/04/16 10:48 DC 11/04/16 13:24 50 ML Sodium Chloride (Sodium Chloride 0.9% Pf Inj) 50 ml STK-MED ONCE .ROUTE 11/04/16 10:47 11/04/16 10:48 DC 11/04/16 10:47 30 ML Bacitracin (Bacitracin Inj) 50,000 units STK-MED ONCE .ROUTE 11/04/16 10:47 11/04/16 10:48 DC 11/04/16 13:26 50,000 UNITS Bupivacaine Liposome 266 mg 266 mg STK-MED ONCE INFIL 11/04/16 10:47 11/04/16 10:48 DC 11/04/16 13:23 266 MG Potassium Chloride/Dextrose/ Sod Cl 1,000 ml @ 100 mls/hr Q10H IV 11/04/16 16:00 11/05/16 13:45 11/05/16 01:50 100 MLS/HR Cefazolin Sodium/ Dextrose (Ancef Iv/D5 50ml) 55 ml @ 100 mls/hr Q8H IV 11/04/16 20:00 11/05/16 04:32 DC 11/05/16 03:51 100 MLS/HR Acetaminophen (Tylenol Tab) 1,000 mg Q8H PO 11/04/16 16:00 12/04/16 13:59 11/05/16 08:33 1,000 MG Docusate Sodium (coLACE CAP) 100 mg BID PO 11/04/16 21:00 12/04/16 20:59 11/05/16 08:32 100 MG Multivitamins (Multivitamin Tab) 1 tab QAM PO 11/05/16 09:00 12/05/16 08:59 11/05/16 08:32 1 TAB Ferrous Gluconate (Ferrous Gluconate Tab) 324 mg TIDM PO 11/04/16 17:45 12/04/16 17:59 11/05/16 08:31 324 MG Pantoprazole Sodium (Protonix Tab) 40 mg QAM PO 11/05/16 09:00 12/05/16 08:59 11/05/16 08:32 40 MG Aspirin 325 mg 325 mg BID PO 11/04/16 21:00 12/04/16 20:59 11/05/16 08:32 325 MG Tranexamic Acid/ Sodium Chloride (Cyklokapron Inj/ Nss 100ml) 110 ml @ 660 mls/hr Q6H IV 11/04/16 18:00 11/04/16 18:09 DC 11/04/16 17:24 660 MLS/HR Ketorolac Tromethamine (Toradol Inj) 15 mg Q6H IV. 11/04/16 18:00 11/06/16 12:01 11/05/16 05:44 15 MG Atorvastatin Calcium (Lipitor Tab) 20 mg HS PO 11/04/16 21:00 12/04/16 20:59 11/04/16 20:43 20 MG Calcium/Vitamin D (Caltrate Plus Tab) 1 tab BID PO 11/04/16 21:00 12/04/16 20:59 11/05/16 08:32 1 TAB Levothyroxine Sodium (Synthroid Tab) 100 mcg HS PO 11/04/16 21:00 12/04/16 20:59 11/04/16 20:44 100 MCG Prednisone 5 mg 5 mg QAM PO 11/05/16 09:00 12/05/16 08:59 11/05/16 08:32 5 MG Hydrocortisone Sodium Succinate/ Syringe (Solu-Cortef IV/ Syringe) 2 ml @ 4 mls/min Q8H IV 11/04/16 16:30 11/05/16 08:31 DC 11/05/16 08:33 4 MLS/MIN Objective Vital Signs Date Time Temp Pulse Resp B/P Pulse Ox O2 Delivery O2 Flow Rate FiO2 11/05/16 08:21 Room Air 11/05/16 06:53 36.4 58 19 145/78 95 Room Air 11/05/16 06:23 36.9 147/100 11/05/16 04:00 52 11/05/16 03:48 36.6 49 16 118/68 97 Nasal Cannula 2.0 11/04/16 23:45 Nasal Cannula 1.0 11/04/16 22:49 36.8 53 16 108/60 94 Nasal Cannula 2.0 11/04/16 18:30 36.5 60 15 150/88 96 Nasal Cannula 1.0 11/04/16 17:30 36.4 63 17 155/79 97 Nasal Cannula 2.0 11/04/16 16:29 36.4 60 17 115/74 97 Nasal Cannula 2.0 11/04/16 16:03 36.3 62 18 128/80 97 Nasal Cannula 2.0 11/04/16 15:41 Nasal Cannula 2.0 98 11/04/16 15:38 96 Nasal Cannula 2.0 11/04/16 15:30 36.4 59 15 131/80 96 Nasal Cannula 2.0 11/04/16 15:08 60 17 98 11/04/16 15:08 61 17 11/04/16 15:05 130/84 11/04/16 15:04 36.4 11/04/16 15:03 60 19 98 11/04/16 15:03 59 19 11/04/16 15:00 146/67 11/04/16 14:59 36.4 11/04/16 14:58 52 19 97 11/04/16 14:58 52 19 11/04/16 14:57 52 19 97 11/04/16 14:57 52 19 11/04/16 14:55 137/69 11/04/16 14:52 55 18 11/04/16 14:52 55 18 97 11/04/16 14:50 141/70 11/04/16 14:47 55 16 99 11/04/16 14:47 55 16 11/04/16 14:45 141/69 11/04/16 14:42 51 17 11/04/16 14:42 51 17 99 11/04/16 14:41 53 19 141/68 99 11/04/16 14:41 53 19 11/04/16 14:36 54 17 99 11/04/16 14:36 53 17 11/04/16 14:35 142/67 11/04/16 14:31 52 18 11/04/16 14:31 52 18 99 11/04/16 14:30 142/67 11/04/16 14:26 52 17 99 11/04/16 14:26 51 17 11/04/16 14:25 147/70 11/04/16 14:21 49 14 99 11/04/16 14:21 49 14 11/04/16 14:20 130/65 11/04/16 14:17 49 17 99 11/04/16 14:17 50 17 11/04/16 14:15 121/73 11/04/16 14:12 53 18 97 11/04/16 14:12 54 18 11/04/16 14:11 127/65 11/04/16 14:07 50 17 98 11/04/16 14:07 50 17 11/04/16 14:06 51 15 99 11/04/16 14:06 50 15 11/04/16 14:05 36.1 11/04/16 14:05 129/64 11/04/16 14:01 51 17 11/04/16 14:01 50 17 98 11/04/16 14:00 132/70 11/04/16 13:56 51 18 98 11/04/16 13:56 50 18 11/04/16 13:55 107/59 11/04/16 13:51 56 16 98 11/04/16 13:51 55 16 11/04/16 13:50 118/61 11/04/16 13:46 54 13 108/67 95 11/04/16 13:46 35.4 55 19 108/67 96 Nasal Cannula 2 11/04/16 13:46 54 13 11/04/16 10:05 65 18 168/65 97 Room Air Physical Exam General Appearance: no apparent distress Eyes: normal inspection Neck: trachea midline Respiratory/Chest: lungs clear Cardiovascular: regular rate, rhythm Abdomen: normal bowel sounds Neurologic/Psychiatric: alert, normal mood/affect Laboratory Results Last 24 Hours Test 11/05/16 05:25 White Blood Count 14.04 K/uL Red Blood Count 4.16 M/uL Hemoglobin 12.3 g/dL Hematocrit 38.3 % Mean Corpuscular Volume 92.1 fL Mean Corpuscular Hemoglobin 29.6 pg Mean Corpuscular Hemoglobin Concent 32.1 g/dl RDW Standard Deviation 48.9 fL RDW Coefficient of Variation 14.5 % Platelet Count 207 K/uL Mean Platelet Volume 10.5 fL Sodium Level 143 mmol/L Potassium Level 4.1 mmol/L Chloride Level 109 mmol/L Carbon Dioxide Level 27 mmol/L Anion Gap 7.0 mmol/L Blood Urea Nitrogen 15 mg/dl Creatinine 1.00 mg/dl Est Creatinine Clear Calc Drug Dose 49.6 ml/min Estimated GFR () 79.7 Estimated GFR (Non- 68.8 BUN/Creatinine Ratio 15.0 Random Glucose 154 mg/dl Calcium Level 8.0 mg/dl Assessment and Plan (1) RA (rheumatoid arthritis) Assessment & Plan: had stress dose steroids leukocytosis secondary to steroids (2) Right Knee DJD Assessment & Plan: prednisone 5 mg today S/P R TKA doing well DVT prop per orthopedics (3) Hypothyroid Assessment & Plan: synthroid (4) GERD (gastroesophageal reflux disease) Assessment & Plan: protonix
[2016-11-05] MEDS: LEVOTHYROXINE 100 MCG TAB PO SCH (20:00)
[2016-11-05] MEDS: ATORVASTATIN 20 MG TAB PO SCH (20:00)
[2016-11-05] MEDS: TRAMADOL HCL 50 MG TAB PO PRN (23:04)
[2016-11-06 05:47] VITALS: BP 106/64; PULSE 58; TEMP 36.5; O2SAT 92
[2016-11-06] MEDS: TRAMADOL HCL 50 MG TAB PO PRN ×2 (06:26→10:29)
[2016-11-06] MEDS: PANTOprazole SOD 40 MG TAB PO SCH (07:28)
[2016-11-06] MEDS: MULTIVITAMIN TAB PO SCH (07:28)
[2016-11-06] MEDS: ACETAMINOPHEN 500 MG TAB PO SCH (07:28)
[2016-11-06] MEDS: CALCIUM 600MG + VIT D 400 IU TAB PO SCH (07:28)
[2016-11-06] MEDS: FERROUS GLUCONATE 324 MG TAB PO SCH (07:28)
[2016-11-06] MEDS: DOCUSATE SODIUM 100 MG CAP PO SCH (07:51)
[2016-11-06] MEDS: ASPIRIN 325 MG ECTAB PO SCH (07:51)
--- NOTE | 2016-11-06 09:05 | PROGRESS NOTE ---
DATE: 11/06/2016 SUBJECTIVE: An 86-year-old gentleman postop day #2 from a right knee replacement. He is doing pretty well. Bit more painful overnight. They gave him some pain pill. He is doing better this morning. No chest pain or shortness of breath. Feels ready to go home. OBJECTIVE: VITAL SIGNS: Temperature 36.5. Vital signs stable. GENERAL: Physical examination reveals a healthy, pleasant, middle-aged male. He is sitting up in his bedside chair and looks comfortable. EXTREMITIES: Examination of the right leg reveals the dressing to be clean, dry and intact. Just a spot of bloody drainage on the dressing. He can do a straight leg raise. He can dorsiflex and plantarflex his foot appropriately. He is neurologically intact. ASSESSMENT: An 86-year-old gentleman postop day #2 from a right knee replacement, doing pretty well. Pain seems to be controlled. PLAN: 1. DVT prophylaxis including thigh-high TEDs, SCDs, and aspirin twice a day. 2. PT/OT. Weightbearing as tolerated. Right total knee protocol. 3. Pain control, doing pretty well with current pain regimen. 4. Disposition: Plan to discharge to home with some home health after therapy today.
[2016-11-06 09:30] VITALS: BP 106/64; PULSE 58; TEMP 36.5; O2SAT 92
--- NOTE | 2016-11-09 15:13 | DISCHARGE SUMMARY ---
ADMITTING PHYSICIAN AND SURGEON: Dr. West. ADMITTING DIAGNOSIS: Right knee degenerative joint disease. SURGERY PERFORMED: Right total knee arthroplasty. SECONDARY DIAGNOSES: Elevated cholesterol, hypothyroidism, gastroesophageal reflux disease, rheumatoid arthritis. CONSULTS: Dr. Nieves postoperative medical care. HISTORY AND PHYSICAL EXAMINATION: Well documented in the patient's chart. HOSPITAL COURSE: The patient was admitted on 11/04/2016 and underwent total knee arthroplasty, tolerated the procedure well. There were no complications. He was transferred to the PACU postoperatively and later to the orthopedic floor for further care. He was given Ancef for antibiotic prophylaxis, PATRICIA stockings, SCDs and aspirin for DVT prophylaxis. Hemoglobin, hematocrit and vital signs were monitored during his hospital stay and remained stable. He did not require any blood transfusions. There were no complications. By postoperative day 2, he was tolerating a general diet. Pain was controlled with oral pain medicine. He was participating in physical therapy and had no signs or symptoms of deep vein thrombosis. On postop day 2, he was discharged home in good condition, set up with home health services. He was given printed discharge instructions, prescriptions for Extra-Strength Tylenol, aspirin 325 mg b.i.d., and tramadol. He can continue his home medications with the exception of his home dose of aspirin which was changed. Continue physical therapy, weightbearing as tolerated, PATRICIA stockings. Follow up in 10-12 days or sooner if there are any problems or concerns.
== END 2016-11-06 10:50 | disposition home health service (06) | DRG 470 ==
LOC: ENRESERVDT → ENRESERVTM → C.ACU 09:47 → C.3E 10:30
PROVIDERS: ADMIT Orthopaedic Surgery Sports Medicine; ATTEND Orthopaedic Surgery Sports Medicine
PROC: 0SRC0J9 Replacement of Right Knee Joint with Synthetic Substitute, Cemented, Open Approach (ICD-10-PCS; principal; 2016-11-04 12:30)
DX: M17.11 Unilateral primary osteoarthritis, right knee (principal); E78.00 Pure hypercholesterolemia, unspecified; E03.9 Hypothyroidism, unspecified; K21.9 Gastro-esophageal reflux disease without esophagitis; M06.9 Rheumatoid arthritis, unspecified; Z79.82 Long term (current) use of aspirin; D72.829 Elevated white blood cell count, unspecified; T38.0X5A Adverse effect of glucocorticoids and synthetic analogues, initial encounter; Z87.891 Personal history of nicotine dependence; Z82.49 Family history of ischemic heart disease and other diseases of the circulatory system; Z82.61 Family history of arthritis

== ENCOUNTER → 2017-02-14 | Outpatient (CLI) | payer BC ==
[~2017-02-14] MED LIST changes: +ACET-1138 PO; -ACETAMINOPHEN 500 MG TAB PO SCH; +ASPEC325 PO; -ASPI81TA28 PO; -BUPIVACAINE 0.25% 30 ML VIAL ONE; -BUPIVACAINE 0.5 % 5 MG/1 ML PF 10ML VIAL ONE; -BUPIVACAINE LIPOSOME 266 MG, BUPIVACAINE/EPINEPHRINE INJ 50 ML, SODIUM CHLORIDE 0.9% PF... INFIL SCH; -CEFAZOLIN 2000 MG/60 ML D5W 60 ML IV SCH; -FAMOTIDINE 20 MG TAB PO SCH; -GABAPENTIN 300 MG CAP PO SCH; -LACTATED RINGER'S 1000ML IV SCH; -LACTATED RINGER'S 500 ML IV SCH; -METOCLOPRAMIDE HCL 10 MG TAB PO SCH; -MIDAZOLAM HCL 1 MG/ML 2ML VIAL ONE; -SCOPOLAMINE 1.5 MG TDSY TD SCH; -TRANEXAMIC ACID INJ 1,000 MG in SODIUM CHLORIDE 0.9% 100ML 100 ML IV SCH; +ULT50X PO
== END | disposition home or self-care (01) ==
LOC: C.MAMM 10:44
PROVIDERS: ATTEND Internal Medicine Rheumatology
DX: M06.9 Rheumatoid arthritis, unspecified (principal); Z79.52 Long term (current) use of systemic steroids; Z79.899 Other long term (current) drug therapy; M81.0 Age-related osteoporosis without current pathological fracture

== ENCOUNTER → 2017-04-06 | Outpatient (CLI) | payer BC ==
[2017-04-06 09:52] LABS: BASO % 0.3 %; BASO ABS # 0.03 K/uL (0-0.2); COMPLETE YES; EOS % 1.9 %; HEMATOCRIT 43.9 % (42-52); IG% 0.3 %; LYMPH % 20.9 %; LYMPH ABS # 1.98 K/uL (1.2-3.4); MEAN CELL VOLUME 91.5 fL (80-100); MEAN CORPUSCULAR HEMOGLOBIN 29.6 pg (25-34); MEAN CORPUSCULAR HGB CONC 32.3 g/dl (32-36); MEAN PLATELET VOLUME 10.9 fL (7.4-10.4); MONO % 10.8 %; NEUT % 65.8 %; PLATELET COUNT 232 K/uL (130-400); WHITE BLOOD COUNT 9.48 K/uL (4.8-10.8)
[2017-04-06 09:58] LABS: ALT/SGPT 16 U/L (12-78); BLOOD UREA NITROGEN 20 mg/dl (7-18); BUN/CREATININE RATIO 19.8 (10-20); CALCIUM 8.9 mg/dl (8.5-10.1); CARBON DIOXIDE 27 mmol/L (21-32); CHLORIDE 106 mmol/L (98-107); CHOLESTEROL 147 mg/dl (0-200); CREATININE 0.99 mg/dl (0.60-1.40); GLUCOSE 83 mg/dl (70-99); POTASSIUM 3.8 mmol/L (3.5-5.1); SODIUM 140 mmol/L (136-145)
[2017-04-06 10:06] LABS: ALB/GLOB RATIO 0.9 (0.9-2); ALKALINE PHOSPHATASE 78 U/L (45-117); AST/SGOT 16 U/L (15-37); CHOLESTEROL/HDL RATIO 1.7; HDL CHOLESTEROL 86 mg/dl; LDL CHOLESTEROL CALCULATED 46 mg/dl; TRIGLYCERIDES 75 mg/dl (0-150); VERY LOW DENSITY LIPOPROT CALC 15 mg/dl
== END | disposition home or self-care (01) ==
LOC: C.LAB1850 07:21
PROVIDERS: ATTEND Internal Medicine
DX: Z51.81 Encounter for therapeutic drug level monitoring (principal); E03.9 Hypothyroidism, unspecified; M06.9 Rheumatoid arthritis, unspecified; Z79.52 Long term (current) use of systemic steroids; Z79.899 Other long term (current) drug therapy; M81.0 Age-related osteoporosis without current pathological fracture; E78.5 Hyperlipidemia, unspecified

== ENCOUNTER → 2017-06-29 | Outpatient (CLI) | payer BC ==
[2017-06-29 10:45] LABS: CALCIUM 8.7 mg/dl (8.5-10.1); CREATININE 1.12 mg/dl (0.60-1.40)
[2017-06-29 10:59] LABS: CALCIUM URINE 18.8 mg/dl
== END | disposition home or self-care (01) ==
LOC: C.LAB1850 09:29
PROVIDERS: ATTEND Internal Medicine Rheumatology
DX: Z79.52 Long term (current) use of systemic steroids (principal); M81.0 Age-related osteoporosis without current pathological fracture; Z79.899 Other long term (current) drug therapy; M06.9 Rheumatoid arthritis, unspecified

== ENCOUNTER → 2017-08-29 | Outpatient (CLI) | payer BC ==
[2017-08-29 16:47] LABS: BASO % 0.3 %; BASO ABS # 0.02 K/uL (0-0.2); EOS % 1.1 %; EOS ABS # 0.09 K/uL (0-0.5); HEMATOCRIT 43.9 % (42-52); HEMOGLOBIN 14.8 g/dL (14.0-18.0); IG# 0.01 K/uL (0.00-0.02); LYMPH ABS # 1.66 K/uL (1.2-3.4); MEAN CELL VOLUME 91.8 fL (80-100); MEAN CORPUSCULAR HGB CONC 33.7 g/dl (32-36); MEAN PLATELET VOLUME 10.9 fL (7.4-10.4); MONO % 5.7 %; MONO ABS # 0.45 K/uL (0.11-0.59); NEUT % 71.8 %; NEUT ABS # 5.69 K/uL (1.4-6.5); PLATELET COUNT 256 K/uL (130-400); RED CELL DISTRIBUTION WIDTH CV 15.1 % (11.5-14.5); RED CELL DISTRIBUTION WIDTH SD 50.9 fL (36.4-46.3); WHITE BLOOD COUNT 7.92 K/uL (4.8-10.8)
[2017-08-29 17:05] LABS: ALBUMIN 3.6 gm/dl (3.4-5.0); ALT/SGPT 24 U/L (12-78); AST/SGOT 17 U/L (15-37); CREATININE 1.36 mg/dl (0.60-1.40)
[2017-08-29 17:08] LABS: ALKALINE PHOSPHATASE 84 U/L (45-117); TOTAL PROTEIN 7.4 gm/dl (6.4-8.2)
== END | disposition home or self-care (01) ==
LOC: C.LAB1850 15:08
PROVIDERS: ATTEND Internal Medicine Rheumatology
DX: M06.9 Rheumatoid arthritis, unspecified (principal); M25.579 Pain in unspecified ankle and joints of unspecified foot; Z79.52 Long term (current) use of systemic steroids; Z79.899 Other long term (current) drug therapy; M81.0 Age-related osteoporosis without current pathological fracture

== ENCOUNTER → 2017-09-13 | Outpatient (CLI) | payer BC ==
[2017-09-13 09:32] LABS: BASO % 0.9 %; BASO ABS # 0.07 K/uL (0-0.2); EOS % 2.8 %; EOS ABS # 0.21 K/uL (0-0.5); HEMOGLOBIN 14.5 g/dL (14.0-18.0); IG# 0.02 K/uL (0.00-0.02); LYMPH % 27.8 %; LYMPH ABS # 2.09 K/uL (1.2-3.4); MEAN CELL VOLUME 92.4 fL (80-100); MEAN CORPUSCULAR HEMOGLOBIN 30.5 pg (25-34); MEAN PLATELET VOLUME 10.5 fL (7.4-10.4); MONO % 10.2 %; MONO ABS # 0.77 K/uL (0.11-0.59); NEUT ABS # 4.36 K/uL (1.4-6.5); PLATELET COUNT 236 K/uL (130-400); RED CELL DISTRIBUTION WIDTH CV 15.3 % (11.5-14.5); RED CELL DISTRIBUTION WIDTH SD 51.6 fL (36.4-46.3); WHITE BLOOD COUNT 7.52 K/uL (4.8-10.8)
[2017-09-13 10:07] LABS: ALBUMIN 3.4 gm/dl (3.4-5.0); ALT/SGPT 24 U/L (12-78); AST/SGOT 19 U/L (15-37); BLOOD UREA NITROGEN 17 mg/dl (7-18); CALCIUM 8.3 mg/dl (8.5-10.1); CARBON DIOXIDE 26 mmol/L (21-32); CREATININE 0.99 mg/dl (0.60-1.40); GLUCOSE 81 mg/dl (70-99); POTASSIUM 3.8 mmol/L (3.5-5.1); SODIUM 141 mmol/L (136-145)
[2017-09-13 10:18] LABS: ALKALINE PHOSPHATASE 82 U/L (45-117); CHOLESTEROL 164 mg/dl (0-200); LDL CHOLESTEROL CALCULATED 67 mg/dl; TOTAL PROTEIN 7.2 gm/dl (6.4-8.2)
== END | disposition home or self-care (01) ==
LOC: C.LAB1850 07:14
PROVIDERS: ATTEND Internal Medicine
DX: E78.5 Hyperlipidemia, unspecified (principal); E03.9 Hypothyroidism, unspecified; M06.9 Rheumatoid arthritis, unspecified

== ENCOUNTER 2021-12-03 06:13 | Observation (INO) ==
--- NOTE | 2021-11-09 14:35 | PAT Medication Instructions ---
Medication Instructions Date of Service November 09, 2021 Home Medications Medication Instructions Recorded ibandronate 150 mg tablet See Rx Instructions PO MONTHLY #3 03/30/21 tab atorvastatin 20 mg tablet 20 mg PO QPM #90 tab 06/25/21 Wheeled Walker #1 ea 10/25/21 fluticasone propionate 50 1 spray INTRANASAL BID #16 g 11/08/21 mcg/actuation nasal spray,suspension (Allergy Relief (fluticasone)) aspirin 81 mg tablet,delayed release (Adult Aspirin Regimen) 81 mg PO QAM calcium carbonate 600 mg-vitamin D3 5 mcg (200 unit) tablet 1 tab PO BID multivitamin 1 tab PO QAM glucosamine-chondroitin [Osteo Bi-Flex] 1 tab PO BID ibandronate 150 mg tablet See Rx Instructions PO MONTHLY atorvastatin 20 mg tablet 20 mg PO QPM fluticasone propionate 50 mcg/actuation nasal spray,suspension (Allergy Relief (fluticasone)) 1 spray INTRANASAL BID naproxen sodium 220 mg capsule (Aleve) 440 mg PO BID PRN gluc zlva-zabiapwqaudu-wfjcgfk mouthwash 1 ea MUCOUS MEMBRANE UD hydroxychloroquine 200 mg tablet 200 mg PO QAM levothyroxine 100 mcg tablet 100 mcg PO HS pantoprazole 40 mg tablet,delayed release 40 mg PO HS prednisone 5 mg tablet 5 mg PO QAM Continue as directed ibandronate 150 mg tablet See Rx Instructions PO MONTHLY ASK your surgeon for instructions naproxen sodium 220 mg capsule (Aleve) 440 mg PO BID PRN hydroxychloroquine 200 mg tablet 200 mg PO QAM STOP taking 2 weeks before surgery (or as soon as possible if surgery is within 2 weeks) glucosamine-chondroitin [Osteo Bi-Flex] 1 tab PO BID DO NOT take the morning of surgery calcium carbonate 600 mg-vitamin D3 5 mcg (200 unit) tablet 1 tab PO BID multivitamin 1 tab PO QAM gluc yccc-dmbmguagimmk-wccdwwv mouthwash 1 ea MUCOUS MEMBRANE UD Take morning of surgery With a small sip of water, OTHERWISE NOTHING TO EAT OR DRINK AFTER MIDNIGHT: aspirin 81 mg tablet,delayed release (Adult Aspirin Regimen) 81 mg PO QAM (continue as normal unless told otherwise by surgeon) fluticasone propionate 50 mcg/actuation nasal spray,suspension (Allergy Relief (fluticasone)) 1 spray INTRANASAL BID prednisone 5 mg tablet 5 mg PO QAM Take evening before surgery calcium carbonate 600 mg-vitamin D3 5 mcg (200 unit) tablet 1 tab PO BID atorvastatin 20 mg tablet 20 mg PO QPM fluticasone propionate 50 mcg/actuation nasal spray,suspension (Allergy Relief (fluticasone)) 1 spray INTRANASAL BID levothyroxine 100 mcg tablet 100 mcg PO HS pantoprazole 40 mg tablet,delayed release 40 mg PO HS Other Notes If you have any questions please call us at [phone] or [phone] or [phone] or [phone]
--- NOTE | 2021-11-11 10:53 | Anesthesiology Consultation ---
Date of Service November 11, 2021 Assessment & Plan (1) Encounter for pre-operative examination: - COVID screening: Per assessment on 11/11: No known COVID-19 positive contacts or current COVID-19 related symptoms. Travel screen negative. Patient eriberto you. Surgeon arranging preop COVID testing. Awaiting results. - S/P Right TKA (11/04/16): SAB at L3/L4 + PNB at [facility] - Dysphagia: Patient reporting dysphagia to solids over the past month. He states resolved with drinking water. No dysphagia to liquids/choking. Patient states he is scheduled to see [facility] [place] 11/15. - Abnormal preop CXR: Question a nodular density projecting over the right upper lobe. This may represent artifact/superimposition shadows. Follow-up with a chest CT is recommended to exclude underlying pulmonary lesion. PCP made aware. Chest CT scheduled 11/22 ([facility]), Chart Review Chart Review: Patient seen in Pre Admission Testing Teaching & Discussion Pre-Anesthesia Teaching/Discussion Notes: Instructed NPO after midnight before surgery,except medications with 15 cc of water. Medication instructions provided according to the PAT guidelines. History Surgery Operation Date: 12/03/21 12:30 Proposed Procedures p Left Total Knee Arthroplasty - Santy West MD Height/Weight Height: 5 ft 4 in Weight: 73.3 kg Allergies Allergy/AdvReac Type Severity Reaction Status Date / Time No Known Allergies Allergy Mild Verified 11/09/21 11:50 Medications Home Medications Medication Instructions Recorded Confirmed Last Taken aspirin 81 mg tablet,delayed 81 mg PO QAM 04/10/19 11/09/21 Unknown release (Adult Aspirin Regimen) calcium carbonate 600 mg-vitamin 1 tab PO BID tab 10/08/19 11/09/21 Unknown D3 5 mcg (200 unit) tablet multivitamin 1 tab PO QAM 10/08/19 11/09/21 Unknown glucosamine-chondroitin [Osteo 1 tab PO BID 09/02/20 11/09/21 Unknown Bi-Flex] ibandronate 150 mg tablet See Rx Instructions PO MONTHLY #3 03/30/21 11/09/21 Unknown tab atorvastatin 20 mg tablet 20 mg PO QPM #90 tab 06/25/21 11/09/21 Unknown Wheeled Walker #1 ea 10/25/21 11/08/21 Unknown fluticasone propionate 50 1 spray INTRANASAL BID #16 g 11/08/21 11/09/21 Unknown mcg/actuation nasal spray,suspension (Allergy Relief (fluticasone)) naproxen sodium 220 mg capsule 440 mg PO BID PRN cap 11/08/21 11/09/21 Unknown (Aleve) gluc pwjj-gffybfjyzrya-txsdxfx 1 ea MUCOUS MEMBRANE UD 11/09/21 11/09/21 Unknown mouthwash hydroxychloroquine 200 mg tablet 200 mg PO QAM 11/09/21 11/09/21 Unknown levothyroxine 100 mcg tablet 100 mcg PO HS 11/09/21 11/09/21 Unknown pantoprazole 40 mg tablet,delayed 40 mg PO HS 11/09/21 11/09/21 Unknown release prednisone 5 mg tablet 5 mg PO QAM 11/09/21 11/09/21 Unknown Past Medical History Medical History GERD (gastroesophageal reflux disease) Controlled Hypertension Hypothyroid Left knee DJD Lyme disease HX Osteoporosis Prediabetes RA (rheumatoid arthritis) Prednisone 5mg daily (chronic) No cervicalgia or cervical ROM limitations Sensorineural hearing loss (SNHL) of both ears b/l hearing aids Exercise / Class Metabolic Activity III < 4 Walking/Shop/Light housework Past Family History Family History Father Stroke Family history of diabetes mellitus Family/Other Breast cancer Denies family history of Ovarian cancer Prostate cancer Myocardial infarction Colorectal cancer Past Surgical History Surgical History (Updated 11/11/21 @ 11:20 by Marilin Owesn) History of appendectomy History of carpal tunnel release RIGHT History of cataract surgery R/L History of herniorrhaphy History of total knee arthroplasty Right TKA (11/04/16): SAB at L3/L4 + PNB at [facility] S/P tonsillectomy S/P TURP (status post transurethral resection of prostate) Past Anesthesia History No Hx of Anesthesia Complications and No Family Hx of Anesthesia Complications History of PONV No Hx of PONV and No Hx of Motion Sickness Social History Smoking Status: Former smoker tobacco type: cigarettes Do You Dip or Chew Tobacco: No Smoking End Date: QUIT AGE 61 YRS Hx Alcohol Use: No Hx Substance Use: No Review of Systems Patient denies chest pain, shortness of breath, dyspnea on exertion, fever, chills, cough, wheezing, palpitations. Physical Exam Vital Signs VITALS BP 149/81 P 71 TEMP 98.4 SP02 97%RA RESP 18 PHYSICAL Full cervical extension range of motion. Full TMJ range of motion. TMD 3 finger breaths Mallampati Score 2 Dentition: full upper/lower dentures Lungs: clear throughout to auscultation Cardiac: regular rate and rhythm, I/ systolic murmur Spine: normal Carotid arteries: negative bruit Extremities: no edema Lab Results Anesthesia Preop Results Results Anesthesia Widget: WBC 10.81 K/uL (4.8-10.8) H 11/11/21 Hgb 13.6 g/dL (14.0-18.0) L 11/11/21 Hct 42.6 % (42-52) 11/11/21 Plt 307 K/uL (130-400) 11/11/21 Na 140 mmol/L (136-145) 11/11/21 K 4.1 mmol/L (3.5-5.1) 11/11/21 Cl 106 mmol/L (98-107) 11/11/21 CO2 26 mmol/L (21-32) 11/11/21 BUN 21 mg/dl (6-23) 11/11/21 Creat 0.90 mg/dl (0.6-1.4) 11/11/21 Glucose Level 97 mg/dl (70-99(Fasting)) 11/11/21 PT 11.1 Seconds (9.0-12.0) 11/11/21 PTT 24.9 Seconds (21.0-31.0) 11/11/21 INR 1.0 (0.9-1.1) 11/11/21 Blood Type A Positive 11/11/21 Antibody Screen NEGATIVE 11/11/21 Testing Electrocardiogram Date: 11/11/21 SR with first degree AVB at 64bpm. Low voltage QRS. No significant change compared to 10/04/16 per notching press operator review. Chest X-Ray Date: 11/11/21 FINDINGS: PA and lateral chest radiographs are compared to study dated 08/26/2019. The heart is enlarged noting atherosclerotic calcification of the thoracic aorta. The pulmonary vasculature is noncongested. Emphysema and chronic interstitial thickening is similar to previous. There is bibasilar scarring/atelectasis. No airspace consolidation or pleural effusion is identified. Question nodular density projecting over the right upper lobe. There is no pneumothorax. The skeletal structures are osteopenic. The bony thorax appears intact. Degenerative change is noted in the shoulders and thoracic spine. IMPRESSION: Cardiomegaly and emphysema with no active disease in the chest. Question a nodular density projecting over the right upper lobe. This may represent artifact/superimposition shadows. Follow-up with a chest CT is recommended to exclude underlying pulmonary lesion. Echocardiogram Date: 04/14/16 EF 55-60%. No RWMA. Type I DD. Mild MR. Cervical Spine Date: 10/04/16 No acute bony abnormality is identified. Minimal anterolisthesis at C5. C6 is unchanged on the neutral/flexion/extension views. Minimal anterolisthesis at C4. C5 is only apparent on the flexion views. Osteopenia and additional spondylotic changes as above.
--- NOTE | 2021-11-27 10:40 | History and Physical Report ---
DATE OF ADMISSION: 12/03/2021. CHIEF COMPLAINT: Persistent left knee pain and discomfort. HISTORY OF PRESENT ILLNESS: The patient is an 89-year-old gentleman well known to me from previous r ight knee replacement done back in 2017. We have been treating him conservatively for his left knee. He has become less successful over time. Pain has become more debilitating. He is having trouble walking and does not feel like he cannot wait any longer and get his knee fixed. The right knee is d oing well. Pain in his left knee is mostly medial, but some global pain. The more he is up and on i t, the more it hurts. It swells more as the day goes on. He has nighttime pain. He would like to h ave his knee fixed. The patient does have a history of longstanding rheumatoid disease, followed by Dr. Rand. He is on medical management for this. PAST MEDICAL HISTORY: 1. History of elevated cholesterol. 2. Gastroesophageal reflux disease. 3. Hypothyroidism. 4. Rheumatoid arthritis. 5. Hypertension. 6. Elevated cholesterol. 7. Osteoporosis. 8. Long-term steroid use. PAST SURGICAL HISTORY: Includes: 1. Appendectomy. 2. Herniorrhaphy. 3. Right knee replacement done on 11/04/2016. 4. TURP. ALLERGIES: None. CURRENT MEDICATIONS: 1. Aspirin. 2. Atorvastatin. 3. Calcium with D. 4. Glucosamine. 5. Hydroxychloroquine. 6. Ibandronate. 7. Levothyroxine. 8. Multivitamin. 9. Aleve. 10. Pantoprazole. 11. Prednisone. 12. Tamsulosin. SOCIAL HISTORY: An 89-year-old male. He is . Does not smoke. No significant alcohol intake . FAMILY HISTORY: Noncontributory. REVIEW OF SYSTEMS: Significant for underlying rheumatoid disease. He has also got some dysphagia. He has no chest pain or shortness of breath. No history of DVT or PE. No bleeding problems. PHYSICAL EXAMINATION: GENERAL: Shows a pleasant, elderly male. Looks to be in reasonably good health. HEENT: Benign. NECK: Supple. No lymphadenopathy. LUNGS: Clear to auscultation. HEART: Has a regular rate and rhythm. ABDOMEN: Soft, nontender, nondistended. EXTREMITIES: Grossly neurovascularly intact except as follows. Examination of the left knee reveals the patient walks with an antalgic gait. He has got varus align ment to his knee with a varus thrust with weightbearing. Small knee effusion. He is tender medially . Bony hypertrophy medially. Range of motion is 5-10 degrees short of full extension to about 120 d egrees of flexion. There is no instability. No pain with hip motion. Examination of the right knee reveals well-healed incision. No significant swelling. Range of motio n is 0 to 120. X-RAYS: X-rays of the left knee from previously reviewed. It shows advanced left knee DJD. He has got complete loss of his medial joint space. He has subchondral sclerosis. ASSESSMENT: An 89-year-old rheumatoid patient status post a right knee replacement 5 years ago with advanced left knee degenerative joint disease. He has failed conservative measures and would like to have his knee fixed. PLAN: We will take him to the operating room and do left total knee replacement. The risks and bene fits of this procedure were explained to the patient include but not limited to DVT, PE, , infec tion, neurological injury, vascular injury, bleeding problem, pain, limited range of motion, stiffnes s, failure to relieve symptoms, incomplete relief of symptoms, need for further surgery in the future , etc. The patient understands and desires to proceed. Informed consent was obtained. He may need some stress dose steroids around the time of his surgery due to his prednisone use. He is going to b e discharged to home using [facility] program. Job ID: [id number]
[~2021-12-03 06:13] MED LIST changes: -ACET-1138 PO; +ACETAMINOPHEN 500 MG TAB PO SCH; -ASPEC325 PO; -ATOR-22 PO; +BUPIVACAINE LIPOSOME/PF 266 MG, BUPIVACAINE/EPINEPHRINE 50 ML, SODIUM CHLORIDE 0.9% 30 ... INFIL SCH; -CALC500C70 PO; +FAMOTIDINE 20 MG TAB PO SCH; +GABAPENTIN 300 MG CAP PO SCH; -HYDR0.5T PO; -LEVO100T PO; +LR 500ML BOLUS, THEN 15ML/HR IV SCH; +LR 60ML/HR IV SCH; +METOCLOPRAMIDE HCL 10 MG TABLET PO SCH; -MISCTAB88 PO; -MULT-506 PO; -PANT40TA PO; -PRED-301 PO; +TRANEXAMIC ACID 1,000 MG **IV Intra-op IV SCH; -ULT50X PO; +ceFAZolin 2000MG 2,000 MG/15 ML SYR IV SCH
[2021-12-03] MEDS ORDERED: BUPIVACAINE 0.5 % 5 MG/1 ML PF 10ML VIAL ONE (06:29)
[2021-12-03] MEDS ORDERED: ROPIVACAINE 0.5% 5 MG/ML 30 ML VIAL ONE (06:29)
--- NOTE | 2021-12-03 06:56 | History & Physical Bridge Note ---
Date of Service December 03, 2021 History & Physical Bridge Note I have examined the patient, reviewed the History & Physical and in the interval since the performance of the History & Physical I have noted the following changes of clinical significance: no changes noted
[2021-12-03] MEDS ORDERED: MIDAZOLAM HCL 1 MG/ML 2ML VIAL ONE (07:31)
[2021-12-03] MEDS ORDERED: ONDANSETRON INJ 2 MG/ML 2 ML VIAL IV PRN ×2 (08:23→12:25)
[2021-12-03] MEDS ORDERED: MoRPHine SULFATE 10 MG/ML CARP/VIAL IV PRN (08:23)
[2021-12-03] MEDS ORDERED: ATROPINE SULFATE 0.1 MG/ML 10ML SYR IV PRN (08:23)
[2021-12-03] MEDS ORDERED: fentaNYL citrate 100 MCG/2 ML VIAL IV PRN (08:23)
[2021-12-03] MEDS ORDERED: ePHEDrine sulfate 50 MG/ML AMP IV PRN (08:23)
[2021-12-03] MEDS ORDERED: MEPERIDINE HCL 25 MG/ML CARP/VIAL IV PRN (08:23)
[2021-12-03] MEDS ORDERED: fentaNYL citrate 100 MCG/2 ML VIAL ONE (08:25)
[2021-12-03] MEDS ORDERED: SODIUM CHLORIDE 0.9% PF 50 ML VIAL ONE (09:07)
[2021-12-03] MEDS ORDERED: BUPIVACAINE/EPINEPHRINE 0.25% 1:200,000 30 ML VIAL ONE (09:07)
[2021-12-03] MEDS ORDERED: BUPIVACAINE LIPOSOME 1.3% 266 MG/20 ML VIAL ONE (09:07)
[2021-12-03] MEDS ORDERED: HYDROCORTISONE SOD SUCCINATE 100 MG/2 ML VIAL ONE (09:38)
[2021-12-03] MEDS ORDERED: ePHEDrine sulfate 50 MG/ML SYR ONE (09:38)
[2021-12-03] MEDS ORDERED: VANCOMYCIN HCL 1000MG/20ML VIAL ONE (09:41)
[2021-12-03] MEDS ORDERED: PROPOFOL IV EMULSION 10 MG/ML 20 ML VIAL IV ONE (09:45)
--- NOTE | 2021-12-03 11:11 | Operative Report ---
PG Post Operative Report Pre & Post Diagnosis Operation Date: 12/03/21 08:50 Pre-Op Diagnosis: Left Knee Osteoarthritis Post-Op Diagnosis: Left Knee Osteoarthritis I identified the patient and participated in the time-out.: Yes Procedure Operation Date: 12/03/21 08:50 Actual Procedures p Left Total Knee Replacement(Left) - Santy West MD Surgeon Santy West MD Credit Products Officer Primitivo Saravia PA-C Estimated Blood Loss 50 Findings Consistent with Post-Op Diagnosis Operative findings real advanced left knee DJD. Extensive grade 4 iytd-ya-koer disease of the medial and patellofemoral compartments. He had a varus deformity to his knee and about 10 to 15 degree flexion contracture. Fluids 1200 cc Specimens Left knee sent for pathology Anesthesia Type Spinal MAC Complications none Disposition Accompanied Patient To Recovery: No Indications Patient is an 89-year-old very active independent elderly gentleman whose had a history of rheumatoid disease. Schedule long history of knee problems and had his right knee replaced about 5 years ago. Over the years he developed increased pain discomfort in his left knee which has become more debilitating. He failed conservative measures. He was having trouble maintaining independent lifestyle and they elected proceed with total knee arthroplasty. Description of Procedure Operative implants consist of: 1 Biomet Vanguard size 65 left posterior stabilized femoral component. 2. Biomet size 71 tibial tray. 3. 12 mm posterior stabilized polyethylene insert. 4. 31 x 8 all polypatella. Patient was taken to the operating, identified, placed on the operating table supine position protectors were properly padded. IV antibiotics tried by anesthesia team. A spinal anesthetic and abductor canal block had provided holding area. Marshall catheter was placed in sterile fashion. Left atrium was then placed in the left lower extremities and prepped and draped in usual sterile fashion. The left leg was elevated exsanguinated with use of an Esmarch in terms playset 300 mmHg. An anterior posterior left knee was then performed to longitudinal incision centered over the patella. Sharp dissection was carried through subcutaneous tissue down the extensor mechanism. A medial parapatellar arthrotomy incision was made. Some subperiosteal dissection was carried out medially. The fat pad was resected beneath patella tendon. The lateral patellofemoral ligament was released. Patella subluxated laterally and the knee was flexed. The osteophytes were taken off distal femur. ACL and PCL were then released from distal femur and the tibia subluxated anteriorly. The external tibial alignment jig was then placed in the interface the tibia and adjusted 16 mm medially. Proximal tibial cut was made remove about a millimeter bone from most deficient aspect medial tibial plateau. Some osteophytes taken off medial and posterior medially. The tibia was then sized to a size 71. Attention drawn the femur. The distal femur examined the sharp drill. Intramedullary canal was suction. A left 6 degree valgus cutting guide was placed. Distal femoral cutting block was pinned in place. Distal femoral cut was made to take an additional 3 mm bone off distal femur. The femur was then sized to a size 65. The AP cutting block was pinned parallel to the epicondylar axis which was 5 degrees of external rotation. The anterior cut, anterior chamfer, posterior cut, posterior chamfer cuts were made. The box cutting guide was placed in just slight lateral box cut was made. The knee was flexed. The remnants of the medial and lateral menisci were excised. The osteophytes were taken off the posterior aspect of the femur. A trial femoral component was placed for the tibial tray was pinned in maximum external rotation and the drill and stem punch were used to create defect in proximal tibia for the tibial tray. The knee was then trialed and the 12 mm insert fit most appropriately. Attention drawn the patella. The patella was cleaned of all soft tissues. Patella thickness measured 22 mm in thickness was cut down to 14. Was sized to a size 31 patella. The lug holes were drilled for the 31 patella. The lateral osteophyte was removed. Patella button was placed. Knee was taken through range of motion and the patella tracked nicely with no thumbs test. Attention drawn to placing the permanent components. All trial components were removed. Bone plug was placed in the distal femur limit blood loss. Double batch Palacos G cement was mixed. I did add an additional gram of vancomycin due to his history of rheumatoid disease and prednisone use. A Biomet Vanguard size 65 left posterior stabilized femoral component, a size 71 tibial tray, a 12 mm posterior stabilized polyethylene insert, and a 31 x 8 all probably patella then cemented in place. Knee was brought out in full extension total cement hardened. Final cement check was then performed. The pericapsular tissues were injected with total 100 cc of combination of 20 of Exparel, 30 cc normal saline, 50 cc of quarter percent Marcaine with epinephrine. Patient did receive 1 g tranexamic acid. The tourniquet was then let down. Tourniquet time 56 minutes. Hemostasis assured use electrocautery. Extensor mechanism closed with combination 1 PDS suture #1 Vicryl suture in [id number] fashion. Extensor mechanism checked found to be intact with subcutaneous tissue then closed with 2 Dexon suture in a buried interrupted fashion skin was closed skin gabriel. Leg was then cleaned and dried and sterile dressing was Xeroform, 4 x 4's, sterile cast padding, Miguel bandage were applied. Patient then transferred to the recovery room in stable condition. Patient tolerated procedure well and there were no complications. Primitivo Saravia, my physician bilingual sales assistant, was present for the entire procedure. His assistance was essential and required for appropriate patient positioning, prepping and draping, surgical exposure, performing the technical details of the operation, placement the implants, closure of the wound, and placement of the sterile bandage. I attest to the content of the Intraoperative Record and any orders documented therein. Any exceptions are noted below.
--- NOTE | 2021-12-03 11:34 | XRay Report ---
LEFT KNEE 2 VIEWS History: Left total knee arthroplasty. Degenerative arthritis. Postop. FINDINGS: The patient is status post a left total knee arthroplasty. The hardware is intact. No fract ure or dislocation. Skin gabriel are in place. IMPRESSION: Left total knee arthroplasty. No evidence for hardware complication. ACT 112: Negative or not required by law. Electronically signed by: Joshua Pascal M.D. 12/03/2021 11:33 AM
--- NOTE | 2021-12-03 12:07 | Anesthesiology Progress Note ---
Date of Service December 03, 2021 Anesthesia Post Procedure Vital Signs Vital Signs: Temp Pulse Pulse Resp BP Pulse Ox 12/03/21 12:00 36.4 C L 73 13 102/60 99 12/03/21 11:50 36.4 C L 72 17 113/62 93 12/03/21 11:40 36.4 C L 65 19 114/68 93 12/03/21 11:30 68 18 130/78 100 12/03/21 11:20 68 19 123/62 100 12/03/21 11:10 63 21 109/59 L 99 12/03/21 10:59 36.5 C 66 14 114/59 L 98 12/03/21 06:35 36.8 C 67 20 151/88 H 95 Transfer of Care Handoff Completed per policy Notes Mental Status: alert / awake / arousable Patient Amnestic to Procedure: Yes Nausea / Vomiting: adequately controlled Pain: adequately controlled Airway Patency, RR, SpO2: stable & adequate BP & HR: stable & adequate Hydration State: stable & adequate Anesthetic Complications: no major complications apparent and Pt Satisfied with anesthetic care
[2021-12-03] MEDS ORDERED: NALOXONE HCL 0.4 MG/1 ML VIAL/CARP IV PRN (12:25)
[2021-12-03] MEDS ORDERED: HYDROmorphone INJ 0.5 MG/0.5 ML SYR IV PRN (12:25)
[2021-12-03] MEDS ORDERED: bisacodyL 10 MG SUPP PR PRN (12:25)
[2021-12-03] MEDS ORDERED: METOCLOPRAMIDE HCL INJ 5 MG/ML 2 ML VIAL IV PRN (12:25)
[2021-12-03] MEDS ORDERED: ALUMINUM/MAGNESIUM SUSP 30 ML UDC PO PRN (12:25)
[2021-12-03] MEDS ORDERED: ACETAMINOPHEN 1,000 MG/100 ML VIAL IV PRN (12:25)
[2021-12-03] MEDS ORDERED: MAGNESIUM HYDROXIDE SUSP 30 ML UDC PO PRN (12:25)
[2021-12-03] MEDS ORDERED: oxyCODONE HCL IR 5 MG TAB (IMMEDIATE RELEASE) PO PRN (12:25)
[2021-12-03] MEDS ORDERED: TAMSULOSIN HCL 0.4 MG CAP PO PRN (12:25)
[2021-12-03] MEDS ORDERED: [UNRECOGNIZED DRUG - OTHER] MUCOUS MEMBRANE SCH (12:25)
[2021-12-03] MEDS: SODIUM CHLORIDE 0.9% 1000ML 1,000 ML IV SCH ×2 (12:34→22:25)
[2021-12-03] MEDS ORDERED: ONDANSETRON 4 MG OD TAB PO PRN (12:59)
[2021-12-03] MEDS: KETOROLAC TROMETHAMINE 15 MG/ML VIAL IV SCH ×2 (13:26→17:28)
[2021-12-03] MEDS: ACETAMINOPHEN 500 MG TAB PO SCH ×2 (13:26→21:08)
[2021-12-03] MEDS ORDERED: TRANEXAMIC ACID / 0.7% NACL 1,000 MG/100 ML BAG IV SCH (17:00)
[2021-12-03] MEDS: ASCORBIC ACID 500 MG TAB PO SCH (17:27)
[2021-12-03] MEDS: ceFAZolin 1000MG 1,000 MG/7.5 ML SYR IV SCH (17:27)
[2021-12-03] MEDS ORDERED: SENNA 8.6 MG TAB PO SCH (21:00)
[2021-12-03] MEDS ORDERED: ATORVASTATIN 20 MG TAB PO SCH (21:00)
[2021-12-03] MEDS ORDERED: NON-FORMULARY MEDICATION (Glucosamine-Chondroitin 1 TAB) PO SCH (21:00)
[2021-12-03] MEDS ORDERED: PANTOprazole 40 MG TAB PO SCH (21:00)
[2021-12-03] MEDS: ASPIRIN 81 MG ECTAB PO SCH (21:05)
[2021-12-03] MEDS: DOCUSATE SODIUM 100 MG CAP PO SCH (21:06)
[2021-12-03] MEDS: CHOLECALCIFEROL 1,000 UNITS 25 MCG TAB PO SCH (21:06)
[2021-12-03] MEDS: FLUTICASONE PROPIONATE NA SPR 16 GM BTL NAE SCH (21:07)
[2021-12-04] MEDS: ceFAZolin 1000MG 1,000 MG/7.5 ML SYR IV SCH (00:54)
[2021-12-04] MEDS: KETOROLAC TROMETHAMINE 15 MG/ML VIAL IV SCH ×3 (00:54→12:42)
[2021-12-04] MEDS: ACETAMINOPHEN 500 MG TAB PO SCH ×2 (06:01→13:57)
[2021-12-04] MEDS ORDERED: LEVOTHYROXINE SODIUM 100 MCG TABLET PO SCH (06:30)
[2021-12-04] MEDS ORDERED: dexAMETHasone 10 MG in SYRINGE 0 ML IV SCH (08:00)
[2021-12-04 08:33] LABS: Hemoglobin 10.2 g/dL (14.0-18.0); Mean Corpuscular Hemoglobin 28.1 pg (25-34); Mean Corpuscular Hgb Conc 31.9 g/dL (32-36); Mean Corpuscular Volume 88.2 fL (80-100); Mean Platelet Volume 10.1 fL (7.4-10.4); Platelet Count 256 K/uL (130-400); RDW Coefficient of Variation 16.5 % (11.5-14.5); RDW Standard Deviation 53.5 fL (36.4-46.3); Red Blood Count 3.63 M/uL (4.7-6.1); White Blood Count 7.61 K/uL (4.8-10.8)
[2021-12-04 08:38] LABS: BUN Creatinine Ratio 23.3 (10-20); Calcium 7.6 mg/dl (8.5-10.1); Creatinine Clr Calc Pharmacy 50.3 ml/min; Est GFR (African American) 87.5 ml/min; Est GFR (Non-African American) 75.5 ml/min; Potassium 3.6 mmol/L (3.5-5.1)
[2021-12-04] MEDS ORDERED: NON-FORMULARY MEDICATION (Multivitamin tablet) PO SCH (09:00)
[2021-12-04] MEDS ORDERED: MULTIVITAMIN TAB PO SCH (09:00)
[2021-12-04] MEDS ORDERED: predniSONE 5 MG TAB PO SCH (09:00)
[2021-12-04] MEDS ORDERED: HYDROXYCHLOROQUINE SULFATE 200 MG TAB PO SCH (09:00)
[2021-12-04] MEDS ORDERED: DOCUSATE SODIUM/SENNA 50/8.6MG TAB PO SCH (09:00)
[2021-12-04] MEDS: CHOLECALCIFEROL 1,000 UNITS 25 MCG TAB PO SCH (09:04)
[2021-12-04] MEDS: DOCUSATE SODIUM 100 MG CAP PO SCH (09:04)
[2021-12-04] MEDS: FLUTICASONE PROPIONATE NA SPR 16 GM BTL NAE SCH ×2 (09:04→09:06)
[2021-12-04] MEDS: ASCORBIC ACID 500 MG TAB PO SCH (09:04)
[2021-12-04] MEDS: ASPIRIN 81 MG ECTAB PO SCH (09:05)
--- NOTE | 2021-12-04 10:01 | Progress Notes ---
DATE OF NOTE: 12/04/2021. SUBJECTIVE: An 89-year-old gentleman postoperative day 1 from a left knee replacement. He is doing pretty well. Really has not report much in the way of pain. No chest pain or shortness of breath. N ot feeling dizzy or lightheaded. OBJECTIVE: VITAL SIGNS: Temperature is 36.7. Vital signs are stable. GENERAL: Shows a pleasant, elderly male. He is kind of shuffling around in bed. He is awake, alert and oriented. LUNGS: Clear to auscultation. HEART: Regular rate and rhythm. ABDOMEN: Soft, nontender, nondistended. EXTREMITIES: Grossly neurovascularly intact except as follows. Examination of the left lower extremity reveals the dressing to be clean, dry and intact. He can do a straight leg raise. He can dorsiflex and plantarflex his foot appropriately. He is neurologically intact. LABORATORY: Hemoglobin 10.2. Hematocrit 32.0. Electrolytes are stable. ASSESSMENT: An 89-year-old gentleman, postoperative day 1 from left knee replacement, doing pretty w ell. He is a little bit confused, probably related to his environment and anesthesia. His pain is c ontrolled. He is neurologically intact. PLAN: 1. DVT prophylaxis include thigh-high TEDs, SCDs, and aspirin twice a day. 2. PT, OT, weightbear as tolerated. Left total knee protocol. 3. Pain control, doing pretty well with current pain regimen. 4. Disposition: Plan is to discharge him to home with some home health and his family's care. Job ID: [id number]
--- NOTE | 2021-12-07 06:35 | Discharge Summary ---
Date of Service December 07, 2021 Discharge Data Procedures Performed Operation Date: 12/03/21 08:50 Actual Procedures p Left Total Knee Replacement(Left) - Santy West MD Hospital Course (1) Status post total left knee replacement: This patient is a 89 year old male admitted on 12/03/21 and underwent total knee arthroplasty. He tolerated the procedure well and there were no complications. Transferred to the PACU post op and later to the orthopedic floor for further care. He was given ancef for antibiotic prophylaxis. He was also given PATRICIA stockings, SCDs, and aspirin for DVT prophylaxis. Hemoglobin, hematocrit, and vital signs were monitored during his hospital stay and remained stable. Did not require any blood transfusions. There were no complications during his hospital stay. By post op day #1 the patient was tolerating a regular diet, pain was reasonably controlled with oral pain medicine, and he was participating in physical therapy. On post op day #1 the patient was discharged home and set up with home health care. He was given printed discharge instructions including prescriptions for extra strength tylenol, aspirin, toradol, zofran, and oxycodone. Continue physical therapy, weight bearing as tolerated. Continue PATRICIA stockings. Follow up approximately 2 weeks post op or sooner if there are problems or concerns. Coding Level of Care Code None Diagnoses Status post total left knee replacement Z96.652
== END 2021-12-04 14:43 | disposition home health service (06) ==
LOC: 3E 06:13 → ASU 06:13